=== PATIENT | female | born 1985 | race Caucasian/White ===

== ENCOUNTER 2017-11-27 14:53 | Emergency (ER) | payer MEDICAID, SELFPAY ==
[2017-11-27 14:54] VITALS: BP 108/44; PULSE 95; RESP 16; TEMP 36.1; O2SAT 98; BMI 41.6
--- NOTE | 2017-11-27 14:56 | EKG12_ITS ---
Test Reason : CP Blood Pressure : / mmHG Vent. Rate : 092 BPM Atrial Rate : 092 BPM P-R Int : 128 ms QRS Dur : 092 ms QT Int : 346 ms P-R-T Axes : 055 051 043 degrees QTc Int : 427 ms Normal sinus rhythm Normal ECG Confirmed by BLADIMIR GARCIA, MARCY ([id number]), writer editor JODI DICKSON ([id number]) on 12/01/2017 3:16:21 PM Referred By: EVE Confirmed By:MARCY GARRISON MD
--- NOTE | 2017-11-27 15:00 | RAD_ITS ---
STUDY: X-RAY CHEST REASON FOR EXAM: Female, 32 years old. Chest pain. TECHNIQUE: Single AP portable view of the chest. COMPARISON: None. FINDINGS: The lungs are clear and expanded. There is no demonstrated pleural abnormality. Normal size heart. Normal mediastinum and juan. Normal visualized pulmonary arteries. Normal visualized aortic arch and descending thoracic aorta. Normal visualized thoracic spine. Normal visualized ribs, clavicles, and shoulders. There is no demonstrated abnormality of the visualized soft tissue structures of the upper abdomen. RAD/Chest 1 View (Portable) IMPRESSION: Normal x-ray examination of the chest. Electronically Signed: Darwin Theodore MD at 15:15 EST Tel [phone], Service support ,
--- NOTE | 2017-11-27 15:01 | ED.VISSUMM ---
- ER Visit Summary Date of Service: 11/27/17 Chief Complaint: [] Sharp stabbing pain to the right of the sternum today History of Present Illness: The patient is a 32 F [] having intermittent sharp stabbing pain to the right of her sternum today she has had no fever no cough, she has no history of SD PE or DVT no risk factors no flu symptoms. She recently was diagnosed with UTI started on Keflex yesterday she took 1 dose she denies Physical Examination: [] Points with the tip of one finger to an area to the right of the sternum over a bony rib this area shows no signs of inflammation infection or lesion and there is no crepitance. Her lungs are clear heart tones are normal abdomen soft nontender the back is unremarkable upper lower extremities unremarkable no sinus clubbing or edema, Test Results: [] Emergency Department Course and Treatment: [] There is nothing on history physical exam suggest SD PE or DVT this is a very focal fingertip type pain EKG shows a sinus rhythm chest x-ray is unremarkable I explained test results to her she agrees with the workup she will be discharged home to use Motrin or Tylenol for the pain and follow with her family doctor return for change in symptoms Treatment Plan: [] Disposition: [] Impression: [] Intermittent sharp right-sided chest pain This note was generated with [employer] dictation software. It may contain incorrect words, spelling, and punctuation that were not noted in review of the chart prior to signing ED Disposition - Plan for ED Patient: Chief Complaint: Chest Pain Referrals: [facility] Doctor,Out of [Primary Care Provider] -
--- NOTE | 2017-11-27 15:04 | ED.DCSUM_ITS ---
- ER Visit Summary Date of Service: 11/27/17 Chief Complaint: [] Sharp stabbing pain to the right of the sternum today History of Present Illness: The patient is a 32 F [] having intermittent sharp stabbing pain to the right of her sternum today she has had no fever no cough, she has no history of [place] PE or DVT no risk factors no flu symptoms. She recently was diagnosed with UTI started on Keflex yesterday she took 1 dose she denies Physical Examination: [] Points with the tip of one finger to an area to the right of the sternum over a bony rib this area shows no signs of inflammation infection or lesion and there is no crepitance. Her lungs are clear heart tones are normal abdomen soft nontender the back is unremarkable upper lower extremities unremarkable no sinus clubbing or edema, Test Results: [] Emergency Department Course and Treatment: [] There is nothing on history physical exam suggest [place] PE or DVT this is a very focal fingertip type pain EKG shows a sinus rhythm chest x-ray is unremarkable I explained test results to her she agrees with the workup she will be discharged home to use Motrin or Tylenol for the pain and follow with her family doctor return for change in symptoms Treatment Plan: [] Disposition: [] Impression: [] Intermittent sharp right-sided chest pain This note was generated with [employer] dictation software. It may contain incorrect words, spelling, and punctuation that were not noted in review of the chart prior to signing ED Disposition - Plan for ED Patient: Chief Complaint: Chest Pain Referrals: [facility] Doctor,Out of [Primary Care Provider] -
--- NOTE | 2017-11-27 16:12 | DCINST.ED_ITS ---
ED Disposition - Plan for ED Patient: Chief Complaint: Chest Pain Instructions: ED Chest Pain Atypical Unkn Cause Prescriptions: Naproxen [Naprosyn] 500 mg PO BID PRN #20 tab Referrals: [facility] Doctor,Out of [Primary Care Provider] -
[2017-11-27 16:13] VITALS: PULSE 90; RESP 16
== END 2017-11-27 17:02 | disposition home or self-care (01) ==
PROVIDERS: Emergency Provider Emergency Medicine
DX: R07.89 Other chest pain (principal)
CPT/HCPCS: 71045; 93005; 99282

== ENCOUNTER 2019-04-22 10:23 | Outpatient (RCR) | payer OTHER, SELFPAY | END 2019-04-25 23:59 | disposition home or self-care (01) | LOC: NS 10:23 | PROVIDERS: Visit Provider Family Medicine | DX: E66.01 Morbid (severe) obesity due to excess calories (principal); Z71.3 Dietary counseling and surveillance | CPT/HCPCS: 97802 ==

== ENCOUNTER 2019-05-13 16:22 | Outpatient (RCR) | payer OTHER, SELFPAY | END 2019-05-26 23:59 | LOC: NS 16:22 | PROVIDERS: Visit Provider Family Medicine | DX: E66.01 Morbid (severe) obesity due to excess calories (principal); Z71.3 Dietary counseling and surveillance | CPT/HCPCS: 97803 ==

== ENCOUNTER 2019-06-01 16:36 | Outpatient (RCR) | payer OTHER, SELFPAY | END 2019-06-01 23:59 | disposition home or self-care (01) | LOC: NS 16:36 | PROVIDERS: Visit Provider Family Medicine | DX: E66.01 Morbid (severe) obesity due to excess calories (principal); Z71.3 Dietary counseling and surveillance | CPT/HCPCS: 97803 ==

== ENCOUNTER 2022-11-08 18:11 | Emergency (ER) | payer OTHER, MEDICAID, SELFPAY ==
[2022-11-08 18:12] VITALS: BP 135/93; PULSE 73; RESP 17; TEMP 35.6; O2SAT 96; BMI 41.8
--- NOTE | 2022-11-08 18:57 | ED.VIS.GI ---
HPI HPI - GI History of Present Illness Chief Complaint: Abd Pain Narrative Narrative: 37-year-old female presents with abdominal pain that she has had she states that she had gastric sleeve surgery at [facility] on October 22, 2022, almost 3 weeks ago. She drink caffeinated coffee today. She is concerned initially that she had dumping syndrome, but she did not have a bowel movement until she took a laxative today. She states she had nausea and vomiting and she took her Zofran, but she really has not had anything to eat or fluids today. She called her surgeon in [place], and they said for her to increase her Prilosec, and if she was not any better on Friday, that they would perform a swallowing study/evaluation. She states she had it prior to her surgery and does not like to drink the contrast. She presents here, mainly asking for IV fluids because she has not had anything today. [facility] Medical History no medical history Home Medications naproxen 500 mg tablet 500 mg PO BID PRN #20 tabs 11/27/17 [Rx Last Taken Unknown] Allergy/AdvReac Type Severity Reaction Status Date / Time erythromycin base Allergy Unknown Verified 11/08/22 18:12 milk AdvReac Nausea/Vom/ Verified 11/08/22 18:12 Diarrhea Family History no significant family his Surgical History no surgical history Social History Smoking Status: Never smoker alcohol intake: never substance use type: does not use ROS ROS ED ROS Narrative Constitutional: No fever, no chills. HEENT: No sore throat. No neck pain. No loss of vision. No rhinorrhea. Cardiovascular: No chest pain. No palpitations. No pedal edema. Respiratory: No cough, no shortness of breath. Abdominal: Mild epigastric abdominal pain. Positive nausea. Positive vomiting. Constipation-resolved Genitourinary: No dysuria. No hematuria. Musculoskeletal: No myalgias. No arthralgias. Neurologic: No headaches. No dizziness. No lightheadedness. Skin: No rash. No change in color. Psychiatric: No depression. No anxiety. EXAM Physical Exam Narrative Exam Narrative: Afebrile. Vital signs noted. HEENT: Normocephalic. Atraumatic. PERRL, EOMI. Neck soft and supple. No point tenderness or step off. Cardiovascular: Regular rate and rhythm. No murmurs, rubs, or gallops appreciated. Respiratory: No tachypnea. Lungs clear to auscultation bilaterally. Gastrointestinal: Abdomen soft, nontender, with normoactive bowel sounds. No rebound or guarding. Neurological: Awake. Alert. Nonfocal, nonlateralizing. Skin: No rash. Normal color. No pallor. Musculoskeletal: No pedal edema. Full range of motion extremities. Const Vital Signs: 11/08/22 18:12 Temperature 96.0 F L Temperature Source Temporal Pulse Rate 73 Respiratory Rate 17 Blood Pressure 135/93 H Blood Pressure Mean 107 Pulse Ox 96 Oxygen Delivery Method Room Air MDM MDM MDM Narrative Medical decision making narrative: Patient is not tachycardic. Clinically, she is not dehydrated. I will check her labs including CBC, CMP, and lipase. She was bolused IV fluids 1 L normal saline intravenously. I reviewed her laboratory work. She has normal white count of 6.0, hemoglobin normal at 12.7, hematocrit 38.7. Platelet count normal at 228. CMP is also grossly unremarkable and normal with normal sodium of 140, normal potassium of 3.6, normal chloride of 106. Lipase normal at 261. Glucose appropriately elevated at 87. Normal anion gap of 8. At this point in time, after her IV fluids, I feel she can be discharged safely home with follow-up. I considered ordering a CT of the abdomen and pelvis, but based on her physical examination, I do not feel that CT is indicated. Rather, I do feel that if she is still having problems on Friday that she should follow-up with her bariatric surgeon as already suggested by their office. Return instructions to the emergency department were reviewed. Disposition is discharged home in stable condition. Lab Data Attestation: I reviewed the patient's lab results. Labs: Laboratory Results - last 24 hr 11/08/22 11/08/22 19:05 19:05 WBC 6.0 RBC 4.43 Hgb 12.7 Hct 38.7 MCV 87.4 MCH 28.7 MCHC 32.8 RDW Std Deviation 42.2 RDW Coeff of Tony 13.7 Plt Count 228 MPV 11.2 Immature Gran % (Auto) 0.200 Neut % (Auto) 65.6 Lymph % (Auto) 26.0 [place] % (Auto) 6.5 Eos % (Auto) 1.2 Baso % (Auto) 0.5 Absolute Neuts (auto) 3.9 Absolute Lymphs (auto) 1.55 Nucleated RBC % 0 Sodium 140 Potassium 3.6 Chloride 106 Carbon Dioxide 26.0 Anion Gap 8 BUN 9 Creatinine 0.74 Estim Creat Clear Calc 91.63 Est GFR (MDRD) Af Amer 114 Est GFR (MDRD) Non-Af 95 BUN/Creatinine Ratio 12.1 Glucose 87 Calcium 8.9 Total Bilirubin 0.50 AST 22 ALT 44 Alkaline Phosphatase 44 L Total Protein 7.7 Albumin 3.9 Globulin 3.8 Albumin/Globulin Ratio 1.0 Lipase 261 Discharge Plan Triage Chief Complaint: Abd Pain ED Provider: Oscar Smith Dx/Rx/DC Orders Clinical Impression: Nausea and vomiting, Constipation, History of bariatric surgery Instructions: ED Constipation (Adult), ED Diet Vomiting Diarrhea Prescriptions: No Action naproxen 500 MG tablet 500 mg PO BID PRN Qty: 20 0RF Primary Care Provider: [facility] Doctor,Out of Referrals: [facility] Doctor,Out of [Primary Care Provider] - Disposition Disposition: Home, Self Care
[2022-11-08 19:17] LABS: Absolute Lymphocyte Count 1.55 X10^3/uL (0.83-4.51); Absolute Neutrophil Count 3.9 X10^3/uL (2.0-7.7); Basophil# 0.03 X10^3/uL; Basophil% 0.5 % (0-1); Eosinophil# 0.07 X10^3/uL; Eosinophils% 1.2 % (0-5); Hematocrit 38.7 % (37-47); Hemoglobin 12.7 g/dL (12.0-15.0); Lymphocyte # 1.55 X10^3/ul (0.83-4.51); Mean Corp Hgb Conc 32.8 g/dL (32-36); Mean Corpuscular Hgb 28.7 pg (27.0-32.0); Mean Corpuscular Volume 87.4 fL (81-99); Mean Platelet Vol. 11.2 fl (6.2-12.0); Monocyte# 0.39 X10^3/uL; Monocyte% 6.5 % (0-10); NRBC Flagged by Analyzer 0 % (0-5); Neutrophil # 3.92 X10^3/uL (2.7-7.7); Neutrophil % 65.6 % (47-70); Platelet Count 228 K/mm3 (150-450); RBC Distribution Width CV 13.7 % (11.6-14.6); RBC Distribution Width SD 42.2 fl (35.1-43.9); Red Blood Count 4.43 M/mm3 (4.2-5.4)
[2022-11-08] MEDS: 0.9% Normal Saline 1,000 ML 1000 ML IV (19:20)
[2022-11-08 19:41] LABS: AST(SGOT) 22 U/L (15-37); Alanine Aminotransfer ALT/SGPT 44 U/L (13-56); Albumin, Serum 3.9 g/dL (3.2-5.0); Alkaline Phosphatase 44 U/L (45-117); Anion Gap 8 (5-15); BUN 9 mg/dL (7-18); BUN/Creat Ratio 12.1 RATIO (10-20); Calcium,Total 8.9 mg/dL (8.5-10.1); Chloride 106 mmol/L (98-107); Creatinine, Serum 0.74 mg/dL (0.55-1.02); EST Glomerular Filtration Rate 95 mL/min (>60); Est Glom Filt Rate - Afr Amer 114 mL/min (>60); Estimated Creatinine Clearance 91.63 ml/min; Globulin 3.8 g/dL (2.2-4.2); Glucose 87 mg/dL (74-106); Lipase 261 U/L (73-393); Potassium 3.6 mmol/L (3.5-5.1); Protein, Total 7.7 g/dL (6.4-8.2); Sodium Level 140 mmol/L (136-145)
== END 2022-11-08 20:25 | disposition home or self-care (01) ==
PROVIDERS: Emergency Provider Emergency Medicine; Referring Provider Emergency Medicine; Visit Provider Emergency Medicine
DX: R11.2 Nausea with vomiting, unspecified (principal); K59.00 Constipation, unspecified; Z98.84 Bariatric surgery status
CPT/HCPCS: 80053; 83690; 85025; 96360; 99283; J7030

== ENCOUNTER 2022-11-21 09:40 | Emergency (ER) | payer OTHER, MEDICAID, SELFPAY ==
[2022-11-21 09:40] VITALS: BP 108/44; PULSE 90; RESP 18; TEMP 36.6; O2SAT 96; BMI 38.6
[2022-11-21 10:58] LABS: Absolute Lymphocyte Count 1.66 X10^3/uL (0.83-4.51); Basophil# 0.04 X10^3/uL; Basophil% 0.6 % (0-1); Eosinophil# 0.06 X10^3/uL; Eosinophils% 0.9 % (0-5); Hematocrit 44.1 % (37-47); Hemoglobin 14.7 g/dL (12.0-15.0); Lymphocyte # 1.66 X10^3/ul (0.83-4.51); Mean Corp Hgb Conc 33.3 g/dL (32-36); Mean Corpuscular Hgb 28.5 pg (27.0-32.0); Mean Corpuscular Volume 85.5 fL (81-99); Mean Platelet Vol. 11.4 fl (6.2-12.0); Monocyte% 9.4 % (0-10); NRBC Flagged by Analyzer 0 % (0-5); Neutrophil # 4.02 X10^3/uL (2.7-7.7); Neutrophil % 62.9 % (47-70); Platelet Count 222 K/mm3 (150-450); RBC Distribution Width SD 43.2 fl (35.1-43.9); Red Blood Count 5.16 M/mm3 (4.2-5.4); White Blood Count 6.4 K/mm3 (4.4-11.0)
[2022-11-21] MEDS: Dicyclomine 10 MG Capsule 20 MG PO (11:04)
[2022-11-21 11:10] LABS: Bacteria 0 SEEN /hpf (None Seen); Mucous, Urine 0 SEEN /hpf (<or=2+)
[2022-11-21 11:11] LABS: Color, Urine Amber (Yellow)
[2022-11-21 11:12] LABS: Leukocyte Esterase-Dipstick 100 /ul (Negative); Nitrite-Dipstick Negative (Negative)
[2022-11-21 11:13] LABS: Occult Blood-Urine Negative /ul (Negative); Protein-Dipstick 30 mg/dl (Negative); Urine Urobilinogen Normal (Normal)
[2022-11-21 11:14] LABS: Glucose, Dipstick Normal (Normal); Ketone-Dipstick 50 mg/dl (Negative); Urine Bilirubin Dipstick Negative (Negative)
[2022-11-21 11:15] LABS: AST(SGOT) 24 U/L (15-37); Alanine Aminotransfer ALT/SGPT 59 U/L (13-56); Alkaline Phosphatase 51 U/L (45-117); Bilirubin, Direct 0.28 mg/dL (0.00-0.30); Globulin 4.3 g/dL (2.2-4.2); Lipase 614 U/L (73-393); Protein, Total 8.3 g/dL (6.4-8.2)
[2022-11-21 11:18] LABS: Red Blood Cells-Urine 0-5 SEEN /hpf (0-5); Urine Clarity Sl Cloudy (Clear); White Blood Cells 25-50 SEEN /hpf (0-5)
[2022-11-21 11:19] LABS: Squamous Epithelial Cells - UA 0-5 SEEN /hpf (5-10)
--- NOTE | 2022-11-21 12:11 | CT_ITS ---
STUDY: CT ABDOMEN WITH CONTRAST REASON FOR EXAM: Female, 37 years old. Epigastric and left upper quadrant pain, elevated lipase. Recent gastric sleeve surgery. RADIATION DOSAGE (If Supplied By Facility): CTDIvol = ( 17.23 ) mGy, DLP = ( 780.76 ) mGycm TECHNIQUE: Transaxial images were obtained post I.V. administration of IV 100mL Isovue-300, and without oral contrast. Sagittal and coronal images were reconstructed. Individualized dose optimization techniques were used for this CT. COMPARISON: None. FINDINGS: The visualized lung bases are unremarkable. The visualized portions of the heart are within normal limits. There is decreased attenuation of the liver consistent with steatosis. Mild hepatomegaly. The gallbladder is contracted. Normal spleen. Normal pancreas. Normal bilateral adrenal glands. Normal right kidney. Normal left kidney. The patient is status post gastric sleeve surgery. Normal small intestine. Normal colon. The appendix is visualized and appears normal. Normal abdominal aorta. Normal inferior vena cava. Normal retroperitoneum. Normal abdominal wall. Normal osseous structures. CT/Abdomen WITH IV Contrast IMPRESSION: Mild hepatomegaly and fatty infiltration of the liver. Status post cholecystectomy and gastric sleeve surgery. Electronically Signed: Darwin Theodore MD at 13:17 EST ,
[2022-11-21] MEDS: Ondansetron 4 MG/2 ML Vial IV (12:25)
[2022-11-21] MEDS: Morphine 4 MG/ML Syringe IV (12:25)
[2022-11-21] MEDS: 0.9% Normal Saline 1,000 ML 999 ML IV (12:43)
--- NOTE | 2022-11-21 13:05 | ED.VIS.GI ---
HPI HPI - GI History of Present Illness Chief Complaint: Abd Pain Detail of Chief Complaint: Gastric left upper quadrant abdominal pain Informant: patient Abdominal Pain/Flank Pain Onset: Weeks (Since gastric sleeve surgery in September 2022) Context: Sudden Onset Timing: Continuous and Waxes and wanes Quality: - (Pain) Location: Epigastric and LUQ Current Severity: Mild Maximum Severity: Severe Worsened by: Nothing; Not Worsened By Car ride, Food or Movement Relieved by: Nothing Nausea/Vomiting/Emesis GI Symptom: Positive for Nausea and Vomiting Onset: Days Quality: Negative for Nonbilious, Blood streaks, Coffee ground or Hematemesis Severity: Moderate Diarrhea/Melena/Hematochezia GI Symptom: Negative for Diarrhea, Melena or Hematochezia Associated Symptoms Associated Symptoms: Negative for Dysuria, Frequency, Hematuria or Urgency Narrative Narrative: Patient is a 37-year-old woman who has had postoperative pain since her gastric sleeve surgery by Dr. Blanca. Patient's office visit for November [address] Simon examined her. Patient did have a Gastrografin upper GI series performed. This revealed sleeve gastrostomy with longitudinal resection of the stomach and remaining tubular gastric conduit. Compared to prior study there is now mucosal irregularities and probable tiny ulcer of the proximal gastric conduit representing interval change. There is no gastric extravasation. There is prompt gastric emptying from the gastric conduit into the duodenum without obstruction. Per Dr. Simon's impression for visit there is a large spontaneous gastric esophageal reflux with the mucosal changes noted on the Gastrografin upper GI series. There is no evidence obstruction or extravasation. Patient states has been seen several times at [facility]. She has been seen on the and however there documentation not available for review and labs were not available for review. Patient states she cannot longer take this pain She states she feels like she is dying. She reports nausea and vomiting daily. She denies history of alcohol use. Does not use any anti-inflammatories. She denies hematemesis. She denies black or maroon-colored stool. Prior similar symptoms: Yes Recent Illness/Hospitalization: Yes PFSH PFSH Medical History no medical history no medical history (Past history is markable for morbid obesity, postoperative pain with nausea and vomiting, gastritis without bleeding and depression.) Home Medications naproxen 500 mg tablet 500 mg PO BID PRN #20 tabs 11/27/17 [Rx Last Taken Unknown] Allergy/AdvReac Type Severity Reaction Status Date / Time erythromycin base Allergy Unknown Verified 11/21/22 09:43 milk AdvReac Nausea/Vom/ Verified 11/21/22 09:43 Diarrhea Family History no significant family his Surgical History H/O gastric sleeve Social History (Updated 11/21/22 @ 13:[address] Slick Alexandre MD) household members: none Smoking Status: Never smoker alcohol intake: never substance use type: does not use ROS ROS ED Constitutional Constitutional ED: Denies chills, fever(s), subjective, sweats or weight loss ENT ENT ED: Denies ear pain, rhinorrhea or sore throat Cardiovascular Cardiovascular: Denies chest pain, palpitations or racing heartbeat Respiratory/Chest Respiratory/Chest: Denies cough, dyspnea or dyspnea on exertion Gastrointestinal Gastrointestinal: Reports abdominal pain, nausea and vomiting; Denies constipation, diarrhea or melena Genitourinary Genitourinary ED: Denies dysuria, hematuria or urinary frequency Musculoskeletal Musculoskeletal: Denies arthralgias, back pain, myalgias or neck pain Neurologic Neurologic: Denies headache(s), paresthesias or weakness Psychiatric Psychiatric: Reports anxiety and depression; Denies suicidal thoughts Hematologic/Lymphatic Hematologic/Lymphatic: Denies easy bleeding or easy bruising EXAM Physical Exam Const Vital Signs: 11/21/22 09:40 11/21/22 13:26 Temperature 97.9 F Temperature Source Temporal Pulse Rate 90 68 Respiratory Rate 18 16 Blood Pressure 108/44 L 133/80 H Blood Pressure Mean 65 97 Pulse Ox 96 95 Oxygen Delivery Method Room Air Room Air Positive well nourished, well developed and obese Constitutional Narrative: Patient is tearful. Patient has labile emotions with flat affect. General Appearance ED: well developed; Negative for NAD or pallor Nutritional Appearance: obese HEENT Reports TM's clear and moist mucous membranes HEENT Narrative: Head is atraumatic normocephalic. Ears normal. Nares patent. Posterior pharynx out erythema or exudate. Tympanic Membrane ED: Yes TM's clear Eyes PERRL and EOMs intact bilaterally General Eye ED: Negative for pale conjunctiva or scleral icterus Neck no lymphadenopathy, supple and no JVD Resp normal respiratory effort and clear to auscultation bilaterally Cardio regular rate, regular rhythm, S1 normal heart sound, S2 normal heart sound and no murmurs GI non-distended and no masses; Negative for non-tender Auscultation: hypoactive bowel sounds Palpation: soft and tender epigastric and LUQ; Negative for hepatomegaly, splenomegaly, hernia, mass, pulsatile mass or rebound tenderness present Back/Spine no CVA tenderness Back/Spine Narrative: Back appears normal. There is no tenderness. Extremity full ROM General Extremety ED: Negative for edema or tenderness General Extremity: Negative for edema Neuro CN's II-XII intact bilaterally and moves all extremities Sensorium / Orientation: alert Psych thought process normal Mood & Affect: depressed, anxious and tearful Skin no wounds General Skin Exam: Negative for jaundice or pallor Lesions: no lesions Rashes: no rashes MDM MDM MDM Narrative Medical decision making narrative: Patient with postoperative. Unable to access records from [facility]. Office note by Dr. Simon done November 16 was reviewed. Findings were remarkable for ulceration in the proximal gastric conduit and gastroesophageal reflux. Work-up is remarkable for an elevated lipase of 1-1/2-2 times normal. This may indicate pancreatitis. For this reason CT of the abdomen was obtained. White count and differential are normal. UA reveals pyuria without bacteriuria. Macro was positive for leukoesterase 100 and negative for blood and nitrites. There is also ketones consistent with her not being able to eat or drink anything. There is no evidence of pancreatitis on CAT scan. CT results were reviewed. Patient was informed based on the upper GI series she has an ulcer. Lab Data Attestation: I reviewed the patient's lab results. Lab results narrative: Documented the MDM portion of the chart Labs: Laboratory Results - last 24 hr 11/21/22 11/21/22 11/21/22 10:50 10:50 11:00 WBC 6.4 RBC 5.16 Hgb 14.7 Hct 44.1 MCV 85.5 MCH 28.5 MCHC 33.3 RDW Std Deviation 43.2 RDW Coeff of Tony 14.0 Plt Count 222 MPV 11.4 Immature Gran % (Auto) 0.200 Neut % (Auto) 62.9 Lymph % (Auto) 26.0 [place] % (Auto) 9.4 Eos % (Auto) 0.9 Baso % (Auto) 0.6 Absolute Neuts (auto) 4.0 Absolute Lymphs (auto) 1.66 Nucleated RBC % 0 Total Bilirubin 0.80 Direct Bilirubin 0.28 AST 24 ALT 59 H Alkaline Phosphatase 51 Total Protein 8.3 H Albumin 4.0 Globulin 4.3 H Lipase 614 H Urine Color [place] Urine Clarity Sl Cloudy Urine pH 5.0 Ur Specific [place] 1.020 Urine Protein 30 H Urine Glucose (UA) Normal Urine Ketones 50 Urine Occult Blood Negative Urine Nitrite Negative Urine Bilirubin Negative Urine Urobilinogen Normal Ur Leukocyte Esterase 100 H Urine RBC 0-5 SEEN Urine WBC 25-50 SEEN Ur Squamous Epith Cells 0-5 SEEN Urine Bacteria 0 SEEN Urine Mucus 0 SEEN Radiography Diagnostic Testing: Clinical Impression(s) from Imaging Studies Abdomen CT 11/21/22 12:11 IMPRESSION: Mild hepatomegaly and fatty infiltration of the liver. Status post cholecystectomy and gastric sleeve surgery. Electronically Signed: Darwin Theodore MD at 13:17 EST , Discharge Plan Triage Chief Complaint: Abd Pain ED Provider: BaldomeroSlick Dx/Rx/DC Orders Clinical Impression: Gastric ulcer, S/P gastric sleeve procedure, Serum lipase elevation, Fatty liver Instructions: Nonalcoholic Fatty Liver ..., ED Gastritis Ulcer No Abx Prescriptions: No Action naproxen 500 MG tablet 500 mg PO BID PRN Qty: 20 0RF Primary Care Provider: Care Physician,No Primary Referrals: Care Physician,No Primary [Primary Care Provider] - Doctor,Your [Non-Staff] - 1 Week if not improving Activity Restrictions/Additional Instructions: 1. Take the Carafate you were prescribed 1/2-hour before meals and 1 hour before bedtime (4 times a day) 2. If you develop black or maroon-colored stool return to an emergency room for evaluation Disposition Disposition: Home, Self Care
[2022-11-21 13:26] VITALS: BP 133/80; PULSE 68; RESP 16; O2SAT 95
== END 2022-11-21 13:52 | disposition home or self-care (01) ==
PROVIDERS: Emergency Provider Emergency Medicine; Visit Provider Emergency Medicine
DX: K25.9 Gastric ulcer, unspecified as acute or chronic, without hemorrhage or perforation (principal); K76.0 Fatty (change of) liver, not elsewhere classified; R74.8 Abnormal levels of other serum enzymes; E66.9 Obesity, unspecified; Z68.38 Body mass index [BMI] 38.0-38.9, adult; Z98.84 Bariatric surgery status
CPT/HCPCS: 74160; 80076; 81001; 83690; 85025; 96361; 96374; 96375; 99283; J7030; Q9967; A4216; J2405

== ENCOUNTER 2022-11-23 19:34 | Emergency (ER) | payer OTHER, MEDICAID, SELFPAY ==
[2022-11-23 19:35] VITALS: BP 132/84; PULSE 91; RESP 16; TEMP 36.1; BMI 38.9
--- NOTE | 2022-11-23 19:41 | EDS_ITS ---
HPI History of Present Illness Chief Complaint: Abd Pain Narrative Narrative: 37-year-old female here with abdominal pain patient notes she is status post gastric sleeve surgery in 10/22/2022. Notes nausea possible dehydration. Notes approximate 6 episodes of nonbloody nonbilious vomitus over the last 24 hours. States got epigastric and diffuse abdominal pain. States has been feeling this way for the last several weeks has been seen in the emergency department several times. States she did take antibiotics which was diagnosed UTI but cannot keep her antibiotics down secondary to nausea and vomiting. PFSH PFSH Home Medications naproxen 500 mg tablet 500 mg PO BID PRN #20 tabs 11/27/17 [Rx Last Taken Unknown] Allergy/AdvReac Type Severity Reaction Status Date / Time erythromycin base Allergy Unknown Verified 11/21/22 09:43 milk AdvReac Nausea/Vom/ Verified 11/21/22 09:43 Diarrhea Family History no significant family his Surgical History H/O gastric sleeve Social History (Updated 11/21/22 @ 13:[address] Slick Alexandre MD) household members: none Smoking Status: Never smoker alcohol intake: never substance use type: does not use ROS ROS ED ROS Narrative Constitutional: Denies fever HEENT: Denies sore throat Neck: Denies neck pain Cardiovascular: Denies chest pain, syncope Respiratory: Denies shortness of breath GI: Endorses abdominal pain, nausea and vomiting : Denies changes in urinary habits Musculoskeletal: Denies muscle or joint pain Neurologic: Denies numbness weakness or loss of sensation Skin denies rash EXAM Physical Exam Narrative Exam Narrative: Nursing triage notes reviewed, Vital signs reviewed Constitutional: please see mdm HENT: MMM Eyes: Pupils equal round and reactive to light, Extraocular muscles intact Neck: No stridor, no JVD, full neck ROM Lungs: Clear to auscultation, No wheezing or rales. No increased work of breathing, no conversational dyspnea, no accessory muscle use, no nasal flaring. No respiratory distress noted Heart: Regular rate and rhythm, No murmurs, No rubs and No gallops, 2+ distal pulses (radial, femoral, posterior tibial) in all extremities Abdomen: Soft, diffuse nonspecific tenderness but no rigidity, rebound or guarding, no obvious peritoneal signs, no palpable pulsatile abdominal masses, no auscultated abdominal bruit : No CVAT Extremities: No edema Neuro: No focal neurological deficits, cranial nerves II through XII intact, 5/5 strength in all extremities. Intact sensation to light touch in all extremities, 2+ reflexes bilateral patella dens. Normal gait. No ataxia. Skin: No rash or lesions noted Const Vital Signs: 11/23/22 19:35 11/23/22 19:35 11/23/22 22:55 Temperature 97.0 F L 97.0 F L Temperature Source Temporal Temporal Pulse Rate 91 91 84 Respiratory Rate 16 16 16 Blood Pressure 132/84 H 132/84 H 115/78 Blood Pressure Mean 100 100 90 Pulse Ox 96 Oxygen Delivery Method Room Air MDM MDM MDM Narrative Medical decision making narrative: Chief Complaint: External records reviewed: Noted to be status post gastric sleeve surgery on 10/22/2022 Seen on 11/08/2022 as well as 11/21/2022. During the most recent visit patient noted she was also seen on the and 13 November. Labs from 2 days ago showed no leukocytosis, anemia or thrombocytopenia, did note elevated lipase at 614, no significant obstructive etiology noted on LFTs, no evidence of UTI. CT scan that time showed mild hepatomegaly, fatty liver infiltration, showed no evidence of active extravasation from gastric sleeve I considered: Gastric sleeve leak, bariatric surgery complication, intra-abdominal infection, perforation, obstruction, pancreatitis, hepatobiliary pathology, dehydration, acute kidney injury, electrolyte abnormalities, I obtained a broad lab work-up. I considered obtaining a CT scan of the patient abdomen pelvis however thought is unnecessary given she is having ongoing sympt oms with a recent negative CT scan 2 days ago. I gave the patient IV fluids, nausea and pain medicine. Factors affecting care: Status post gastric sleeve on 10/22/2022 Social determinants of health: Poor health literacy Shared decision making: I will have a discussion with the patient and or visitors regarding risk/benefits of further testing or admission. They will be made aware of of the risk/benefits inherent in this decision they will be given the opportunity to voice understanding. Consults: Lab Data Attestation: I reviewed the patient's lab results. Lab results narrative: CBC without evidence of systemic inflammation, anemia or thrombocytopenia BMP with mild hypokalemia, no significant anion gap to suggest endorgan hypoperfusion, no sniffing acute kidney injury Lipase marginally elevated but downtrending from prior LFTs with mild elevations in AST and ALT but no significant obstructive biliary pathology noted Labs: Laboratory Results - last 24 hr 11/23/22 11/23/22 11/23/22 20:20 20:20 21:30 WBC 6.3 RBC 5.14 Hgb 15.0 Hct 44.3 MCV 86.2 MCH 29.2 MCHC 33.9 RDW Std Deviation 43.3 RDW Coeff of Tony 13.7 Plt Count 238 MPV 11.4 Immature Gran % (Auto) 0.200 Neut % (Auto) 68.2 Lymph % (Auto) 23.4 [place] % (Auto) 7.4 Eos % (Auto) 0.5 Baso % (Auto) 0.3 Absolute Neuts (auto) 4.3 Absolute Lymphs (auto) 1.48 Nucleated RBC % 0 Sodium 139 Potassium 3.1 L Chloride 100 Carbon Dioxide 32.0 Anion Gap 7 BUN 9 Creatinine 0.87 Estim Creat Clear Calc 77.94 Est GFR (MDRD) Af Amer 96 Est GFR (MDRD) Non-Af 79 BUN/Creatinine Ratio 10.4 Glucose 117 H Calcium 9.9 Total Bilirubin 0.70 Direct Bilirubin 0.23 AST 74 H ALT 107 H Alkaline Phosphatase 52 Total Protein 8.4 H Albumin 4.3 Globulin 4.1 Lipase 405 H Urine Test Negative Discharge Plan Triage Chief Complaint: Abd Pain ED Provider: Tono Barr Dx/Rx/DC Orders Clinical Impression: S/P gastric sleeve procedure, Nausea & vomiting, Acute hypokalemia Prescriptions: No Action naproxen 500 MG tablet 500 mg PO BID PRN Qty: 20 0RF Primary Care Provider: Mary Michel Referrals: Care Physician,No Primary [Non-Staff] -
[2022-11-23 20:42] LABS: Absolute Lymphocyte Count 1.48 X10^3/uL (0.83-4.51); Absolute Neutrophil Count 4.3 X10^3/uL (2.0-7.7); Basophil# 0.02 X10^3/uL; Basophil% 0.3 % (0-1); Eosinophil# 0.03 X10^3/uL; Eosinophils% 0.5 % (0-5); Hematocrit 44.3 % (37-47); Lymphocyte # 1.48 X10^3/ul (0.83-4.51); Lymphocyte % 23.4 % (19-41); Mean Corp Hgb Conc 33.9 g/dL (32-36); Mean Corpuscular Hgb 29.2 pg (27.0-32.0); Mean Corpuscular Volume 86.2 fL (81-99); Mean Platelet Vol. 11.4 fl (6.2-12.0); Monocyte# 0.47 X10^3/uL; Monocyte% 7.4 % (0-10); NRBC Flagged by Analyzer 0 % (0-5); Neutrophil # 4.31 X10^3/uL (2.7-7.7); Neutrophil % 68.2 % (47-70); Platelet Count 238 K/mm3 (150-450); RBC Distribution Width CV 13.7 % (11.6-14.6); RBC Distribution Width SD 43.3 fl (35.1-43.9); Red Blood Count 5.14 M/mm3 (4.2-5.4); White Blood Count 6.3 K/mm3 (4.4-11.0)
[2022-11-23] MEDS: 0.9% Normal Saline 1,000 ML 1000 ML IV (20:46)
[2022-11-23] MEDS: proMETHazine 25 MG/ML Syringe 12.5 MG IM (20:46)
[2022-11-23] MEDS: Morphine 4 MG/ML Syringe IV (20:46)
[2022-11-23 20:54] LABS: AST(SGOT) 74 U/L (15-37); Alanine Aminotransfer ALT/SGPT 107 U/L (13-56); Albumin, Serum 4.3 g/dL (3.2-5.0); Alkaline Phosphatase 52 U/L (45-117); Anion Gap 7 (5-15); BUN 9 mg/dL (7-18); BUN/Creat Ratio 10.4 RATIO (10-20); Bilirubin, Direct 0.23 mg/dL (0.00-0.30); Calcium,Total 9.9 mg/dL (8.5-10.1); Chloride 100 mmol/L (98-107); Creatinine, Serum 0.87 mg/dL (0.55-1.02); EST Glomerular Filtration Rate 79 mL/min (>60); Est Glom Filt Rate - Afr Amer 96 mL/min (>60); Estimated Creatinine Clearance 77.94 ml/min; Globulin 4.1 g/dL (2.2-4.2); Glucose 117 mg/dL (74-106); Lipase 405 U/L (73-393); Potassium 3.1 mmol/L (3.5-5.1); Protein, Total 8.4 g/dL (6.4-8.2); Sodium Level 139 mmol/L (136-145)
[2022-11-23 22:07] LABS: Internal QC Validated? YES +Cl - CLEAR BKGD; Pregnancy, Urine Negative Negative
[2022-11-23] MEDS: Potassium Chloride Oral Tablet 20 MEQ 40 MEQ PO (22:16)
[2022-11-23] MEDS: Morphine 4 MG/ML Syringe IM (22:16)
[2022-11-23 22:55] VITALS: BP 115/78; PULSE 84; RESP 16; O2SAT 96
== END 2022-11-23 23:18 | disposition home or self-care (01) ==
PROVIDERS: Emergency Provider Emergency Medicine; PCP Family Medicine; Visit Provider Emergency Medicine
DX: R11.2 Nausea with vomiting, unspecified (principal); Z90.3 Acquired absence of stomach [part of]; E87.6 Hypokalemia; K76.0 Fatty (change of) liver, not elsewhere classified
CPT/HCPCS: 80048; 80076; 81025; 83690; 85025; 96361; 96372; 96374; 99283; J7030; A4216

== ENCOUNTER 2022-11-24 21:46 | Emergency (ER) | payer OTHER, MEDICAID, SELFPAY ==
[2022-11-24 21:47] VITALS: BP 118/87; PULSE 94; RESP 15; TEMP 36.2; O2SAT 98; BMI 38.6
--- NOTE | 2022-11-24 22:14 | EX.ED.DYSGE1 ---
HPI History of Present Illness Chief Complaint: Abd Pain Informant: patient Narrative Narrative: Patient Eliza presents with abdominal pain. She had gastric sleeve done at [facility] on 22 October 2022. She states she has had pain ever since surgery. She had 3 weeks where she ate nothing at all. She verifies that she did not even eat a drop of food until today. She lost 51 pounds in the last 4 weeks since surgery. She states the most fluid she has ever gotten in the day is a 1 L container of Gatorade. Most days she has not gotten that much in. She has been having pain mostly in the right upper quadrant and slightly epigastric area and occasionally right lower quadrant ever since surgery. She states this morning she felt better. She then ate some mashed potatoes and gravy. She did well with this. However, when she went out shopping she got the pain that came back and then had an episode of diarrhea. She states she has a lifelong history of diarrhea but was somewhat constipated after surgery. That has resolved. She has not seen blood or mucus. She is not vomiting although she does have some intermittent nausea. She denies any fevers. Nothing specifically makes this pain better or worse. She states she has had about 6 visits to the emergency department. 4 are here. To her up at [facility]. She has seen the surgeon office and follow-up as well as they have seen her in the ER at [facility]. She has follow-up with her surgeon on the . She was told there is no ulcer or gastritis. However, in an office follow-up and upper GI that was done it now shows mucosal irregularities and suspect tiny ulcer in the region of the proximal gastric conduit there was no sign of obstruction. PFSH PFSH Home Medications naproxen 500 mg tablet 500 mg PO BID PRN #20 tabs 11/27/17 [Rx Last Taken Unknown] Allergy/AdvReac Type Severity Reaction Status Date / Time erythromycin base Allergy Unknown Verified 11/24/22 21:51 milk AdvReac Nausea/Vom/ Verified 11/24/22 21:51 Diarrhea Surgical History H/O gastric sleeve Social History household members: none Smoking Status: Never smoker alcohol intake: never substance use type: does not use ROS ROS ED Constitutional Constitutional ED: Denies chills, fever(s) or subjective ENT ENT ED: Denies rhinorrhea or sore throat Cardiovascular Cardiovascular: Denies chest pain or palpitations Respiratory/Chest Respiratory/Chest: Denies cough or dyspnea Gastrointestinal Gastrointestinal: Reports abdominal pain, diarrhea and nausea; Denies constipation, melena or vomiting Genitourinary Genitourinary ED: Denies dysuria, hematuria or urinary frequency Musculoskeletal Musculoskeletal: Denies arthralgias or back pain Integumentary Denies rash Neurologic Neurologic: Denies headache(s) Psychiatric Psychiatric: Denies anxiety Endocrine Endocrinology: Denies polydipsia or polyuria Hematologic/Lymphatic Hematologic/Lymphatic: Denies anemia Allergic/Immunologic Allergic/Immunologic ED: Denies urticaria EXAM Physical Exam Const Vital Signs: 11/24/22 21:47 11/25/22 00:39 Temperature 97.2 F L Temperature Source Temporal Pulse Rate 94 68 Respiratory Rate 15 15 Blood Pressure 118/87 H 146/95 H Blood Pressure Mean 97 112 Pulse Ox 98 98 Oxygen Delivery Method Room Air Room Air Positive well nourished and well developed General Appearance ED: well developed and NAD; Negative for cyanotic or diaphoretic HEENT Reports moist mucous membranes Negative for trauma Eyes General Eye ED: Negative for scleral icterus Neck no lymphadenopathy Chest Wall inspection of chest normal Resp normal respiratory effort and clear to auscultation bilaterally Effort and Inspection: Negative for pain with movement Auscultation: Negative for wheezes Cardio regular rate, regular rhythm and no murmurs Rate: Negative for bradycardia or tachycardic GI normal to inspection, nondistended, normoactive bowel sounds GI Narrative: All port sites are healed well. She has pain in the epigastric and right upper quadrant area. However there is not notable tenderness. There is no distention. Bowel sounds are slightly increased. Narrative: No CVA tenderness Back/Spine no CVA tenderness Extremity normal to inspection Neuro Sensorium / Orientation: alert Psych Psych Narrative: Mildly tearful and frustrated Skin no rashes or lesions noted MDM MDM MDM Narrative Medical decision making narrative: Patient CBC shows normal white count hemoglobin and platelets. Electrolytes overall unremarkable. No sign of significant dehydration. Lactic acid is normal. LFT show minimal elevation in the ALT AST. She has had these up before. Alk phos is actually low. is negative. Urine is slightly cloudy but it is also not a clean-catch with 25-50 epithelial cells. No bacteria. I do not think this represents an acute UTI. I did review CT images and reading from the . Patient is treated with IV fluids, 2 doses of morphine, Zofran, promethazine, pantoprazole. She is still nauseated and does not feel like she can go home or eat or drink. I did call [facility] regional transfer line. I then discussed the case directly with Dr. Patel who was on-call further gastric surgery group. We discussed the results of her presentation and exam work-up and prior imaging. They were to see her in the emergency department. I do not think repeating the CAT scan is required on this patient. She has had 2 MRIs upper GI and a CAT scan with the same symptoms over the last [address] was here a few days ago. With her exam being overall nonfocal/unremarkable and her blood work not showing any major abnormality I do not think acute imaging is necessary. I think the best route is symptom control and evaluation by her surgeon. Lab Data Attestation: I reviewed the patient's lab results. Labs: Laboratory Results - last 24 hr 11/24/22 11/24/22 11/24/22 22:44 22:44 22:44 WBC 6.3 RBC 4.67 Hgb 13.7 Hct 40.5 MCV 86.7 MCH 29.3 MCHC 33.8 RDW Std Deviation 44.3 H RDW Coeff of Tony 13.9 Plt Count 209 MPV 12.1 H Immature Gran % (Auto) 0.200 Neut % (Auto) 65.4 Lymph % (Auto) 26.5 [place] % (Auto) 6.0 Eos % (Auto) 1.4 Baso % (Auto) 0.5 Absolute Neuts (auto) 4.1 Absolute Lymphs (auto) 1.67 Nucleated RBC % 0 Sodium 139 Potassium 3.5 Chloride 102 Carbon Dioxide 26.0 Anion Gap 11 BUN 10 Creatinine 0.68 Estim Creat Clear Calc 99.71 Est GFR (MDRD) Af Amer 126 Est GFR (MDRD) Non-Af 104 BUN/Creatinine Ratio 14.7 Glucose 105 Lactic Acid 1.3 Calcium 9.1 Total Bilirubin 0.60 AST 72 H ALT 110 H Alkaline Phosphatase 43 L Total Protein 7.4 Albumin 3.6 Globulin 3.8 Albumin/Globulin Ratio 0.9 Serum , Qual Urine Color Urine Clarity Urine pH Ur Specific [place] Urine Protein Urine Glucose (UA) Urine Ketones Urine Occult Blood Urine Nitrite Urine Bilirubin Urine Urobilinogen Ur Leukocyte Esterase Urine RBC Urine WBC Ur Squamous Epith Cells Urine Bacteria Urine Mucus 11/24/22 11/24/22 22:44 22:55 WBC RBC Hgb Hct MCV MCH MCHC RDW Std Deviation RDW Coeff of Tony Plt Count MPV Immature Gran % (Auto) Neut % (Auto) Lymph % (Auto) [place] % (Auto) Eos % (Auto) Baso % (Auto) Absolute Neuts (auto) Absolute Lymphs (auto) Nucleated RBC % Sodium Potassium Chloride Carbon Dioxide Anion Gap BUN Creatinine Estim Creat Clear Calc Est GFR (MDRD) Af Amer Est GFR (MDRD) Non-Af BUN/Creatinine Ratio Glucose Lactic Acid Calcium Total Bilirubin AST ALT Alkaline Phosphatase Total Protein Albumin Globulin Albumin/Globulin Ratio Serum , Qual NEGATIVE Urine Color Yellow Urine Clarity Sl. Cloudy Urine pH 7.0 Ur Specific [place] 1.015 Urine Protein 30 H Urine Glucose (UA) Normal Urine Ketones 15 H Urine Occult Blood 10 H Urine Nitrite Negative Urine Bilirubin Negative Urine Urobilinogen 1 H Ur Leukocyte Esterase 500 H Urine RBC 0 SEEN Urine WBC 10-25 SEEN Ur Squamous Epith Cells 25-50 SEEN Urine Bacteria 0 SEEN Urine Mucus 2+ Discharge Plan Triage Chief Complaint: Abd Pain ED Provider: Reed Henriquez Dx/Rx/DC Orders Clinical Impression: Nausea & vomiting, Postoperative abdominal pain Prescriptions: No Action naproxen 500 MG tablet 500 mg PO BID PRN Qty: 20 0RF Primary Care Provider: Mary Michel Referrals: Mary Michel [Primary Care Provider] - Disposition Disposition: Acute Care Hospital Discharge Location: [facility]
[2022-11-24] MEDS: Morphine 4 MG/ML Syringe IV (22:51)
[2022-11-24] MEDS: 0.9% Normal Saline 1,000 ML 1000 ML IV (22:51)
[2022-11-24] MEDS: Ondansetron 4 MG/2 ML Vial IV (22:51)
[2022-11-24 22:57] LABS: Bacteria 0 SEEN /hpf (None Seen); Red Blood Cells-Urine 0 SEEN /hpf (0-5)
[2022-11-24 22:58] LABS: Absolute Lymphocyte Count 1.67 X10^3/uL (0.83-4.51); Absolute Neutrophil Count 4.1 X10^3/uL (2.0-7.7); Basophil# 0.03 X10^3/uL; Basophil% 0.5 % (0-1); Eosinophil# 0.09 X10^3/uL; Eosinophils% 1.4 % (0-5); Hematocrit 40.5 % (37-47); Hemoglobin 13.7 g/dL (12.0-15.0); Lymphocyte # 1.67 X10^3/ul (0.83-4.51); Lymphocyte % 26.5 % (19-41); Mean Corp Hgb Conc 33.8 g/dL (32-36); Mean Corpuscular Hgb 29.3 pg (27.0-32.0); Mean Corpuscular Volume 86.7 fL (81-99); Mean Platelet Vol. 12.1 fl (6.2-12.0); Monocyte# 0.38 X10^3/uL; NRBC Flagged by Analyzer 0 % (0-5); Neutrophil # 4.13 X10^3/uL (2.7-7.7); Neutrophil % 65.4 % (47-70); Platelet Count 209 K/mm3 (150-450); RBC Distribution Width CV 13.9 % (11.6-14.6); RBC Distribution Width SD 44.3 fl (35.1-43.9); Red Blood Count 4.67 M/mm3 (4.2-5.4); White Blood Count 6.3 K/mm3 (4.4-11.0)
[2022-11-24 22:59] LABS: Color, Urine Yellow (Yellow); Glucose, Dipstick Normal (Normal); Ketone-Dipstick 15 mg/dl (Negative); Leukocyte Esterase-Dipstick 500 /ul (Negative); Nitrite-Dipstick Negative (Negative); Occult Blood-Urine 10 /ul (Negative); Protein-Dipstick 30 mg/dl (Negative); Specific Gravity, Urine 1.015 (1.002-1.030); Urine Bilirubin Dipstick Negative (Negative); Urine Clarity Sl. Cloudy (Clear); Urine Urobilinogen 1 mg/dl (Normal)
[2022-11-24 23:05] LABS: Mucous, Urine 2+ /hpf (<or=2+); Squamous Epithelial Cells - UA 25-50 SEEN /hpf (5-10); White Blood Cells 10-25 SEEN /hpf (0-5)
[2022-11-24 23:06] LABS: Internal QC Validated? YES +Cl - CLEAR BKGD; Pregnancy, Serum, hCG Quali. NEGATIVE Negative
[2022-11-24 23:17] LABS: ALB/GLOB Ratio 0.9 RATIO (0.9-2.4); AST(SGOT) 72 U/L (15-37); Alanine Aminotransfer ALT/SGPT 110 U/L (13-56); Albumin, Serum 3.6 g/dL (3.2-5.0); Alkaline Phosphatase 43 U/L (45-117); Anion Gap 11 (5-15); BUN 10 mg/dL (7-18); BUN/Creat Ratio 14.7 RATIO (10-20); Calcium,Total 9.1 mg/dL (8.5-10.1); Chloride 102 mmol/L (98-107); Creatinine, Serum 0.68 mg/dL (0.55-1.02); EST Glomerular Filtration Rate 104 mL/min (>60); Est Glom Filt Rate - Afr Amer 126 mL/min (>60); Estimated Creatinine Clearance 99.71 ml/min; Globulin 3.8 g/dL (2.2-4.2); Glucose 105 mg/dL (74-106); Lactic Acid 1.3 mmol/L (0.4-1.9); Potassium 3.5 mmol/L (3.5-5.1); Protein, Total 7.4 g/dL (6.4-8.2); Sodium Level 139 mmol/L (136-145)
[2022-11-25] MEDS: proMETHazine 25 MG/ML Syringe 12.5 MG IM (00:31)
[2022-11-25] MEDS: Morphine 4 MG/ML Syringe IV (00:32)
[2022-11-25 00:39] VITALS: BP 146/95; PULSE 68; RESP 15; O2SAT 98
[2022-11-25 04:01] VITALS: BP 144/80; PULSE 70; RESP 15; O2SAT 99
== END 2022-11-25 04:03 | disposition short-term general hospital (02) ==
PROVIDERS: Emergency Provider Emergency Medicine; PCP Family Medicine; Visit Provider Emergency Medicine
DX: R11.2 Nausea with vomiting, unspecified (principal); R10.9 Unspecified abdominal pain; Z98.84 Bariatric surgery status; G89.18 Other acute postprocedural pain
CPT/HCPCS: 80053; 81001; 83605; 84703; 85025; 96361; 96365; 96372; 96375; 96376; 99284; J7030; A4216; J2405; J3490

== ENCOUNTER 2022-11-27 21:26 | Emergency (ER) | payer OTHER, MEDICAID, SELFPAY ==
[2022-11-27 21:27] VITALS: BP 114/79; PULSE 84; RESP 18; TEMP 35.9; O2SAT 100; BMI 38.6
--- NOTE | 2022-11-27 22:59 | EDS_ITS ---
HPI HPI - GI History of Present Illness Chief Complaint: Abd Pain Narrative Narrative: 37-year-old female presenting with nausea/vomiting. She states that she she drank some apple juice earlier today and after that developed some nausea and diarrhea. She has not had a fever. She is status post Oestreich sleeve about a month ago. She has been in the ER several times with similar symptoms. She has been to her surgeon in follow-up and was started on lidocaine patches and scopolamine patch. She also has Zofran, Phenergan, Carafate for home. PFSH PFSH Home Medications naproxen 500 mg tablet 500 mg PO BID PRN #20 tabs 11/27/17 [Rx Last Taken Unknown] Allergy/AdvReac Type Severity Reaction Status Date / Time erythromycin base Allergy Unknown Verified 11/27/22 21:27 milk AdvReac Nausea/Vom/ Verified 11/27/22 21:27 Diarrhea Surgical History H/O gastric sleeve Social History household members: none Smoking Status: Never smoker alcohol intake: never substance use type: does not use ROS ROS ED Constitutional Constitutional ED: Denies chills or fever(s) ENT ENT ED: Denies rhinorrhea or sore throat Cardiovascular Cardiovascular: Denies chest pain Respiratory/Chest Respiratory/Chest: Denies cough Gastrointestinal Gastrointestinal: Reports nausea and vomiting; Denies abdominal pain Genitourinary Genitourinary ED: Denies dysuria or hematuria Musculoskeletal Musculoskeletal: Denies arthralgias Integumentary Denies abscess or Abrasions Neurologic Neurologic: Denies headache(s) or paresthesias Psychiatric Psychiatric: Denies anxiety or depression Endocrine Endocrinology: Denies polydipsia or polyphagia EXAM Physical Exam Const Vital Signs: 11/27/22 21:27 Temperature 96.7 F L Temperature Source Temporal Pulse Rate 84 Respiratory Rate 18 Blood Pressure 114/79 Blood Pressure Mean 90 Pulse Ox 100 Oxygen Delivery Method Room Air Positive well nourished General Appearance ED: NAD; Negative for pallor HEENT Reports moist mucous membranes normocephalic and atraumatic Eyes PERRL and EOMs intact bilaterally Neck no lymphadenopathy Resp normal respiratory effort and clear to auscultation bilaterally Cardio regular rate and regular rhythm GI Inspection: Negative for abdominal distention Auscultation: hyperactive bowel sounds Palpation: soft Back/Spine no CVA tenderness Extremity full ROM General Extremety ED: Yes edema General Extremity: edema Neuro CN's II-XII intact bilaterally, moves all extremities, no sensory deficits noted and gait normal Sensorium / Orientation: alert Motor Exam: general weakness Psych mental status grossly normal and thought process normal Skin no wounds General Skin Exam: Negative for jaundice or pallor MDM MDM MDM Narrative Medical decision making narrative: Patient presenting with abdominal pain, nausea, vomiting, diarrhea. She has history of gastric sleeve recently. She has been here several times with s imilar pain. She has been seen by her surgeon in follow-up as well. She states that tonight she drank some apple juice and started vomiting and having diarrhea. She states that previous to this she all she would drink without juice. Patient did not call her surgeon or the on-call surgeon. She states that I become a frequent flyer here. Differential includes but is not limited to GERD, gastric ulcer, viral syndrome, pancreatitis, postoperative pain. Obstruction is possible however based on her exam is unlikely. Will obtain a CBC to look at her white blood cell count and different. CMP to look at renal function, liver function, electrolytes that she has passed and dehydrated. Teddy series to assess for obstruction. CBC shows no evidence of leukocytosis. White blood count is actually normal at 6.2. Hemoglobin macular stable. Platelets are normal. Renal function electrolytes within normal limits. LFTs with mild elevation however this is her baseline. Lipase is normal at 354. Patient initially medicated with Tylenol for her nausea she states that nothing she has is working. She has Reglan, Zofran, Phenergan at home. I did obtain an acute abdominal series, interpretation this is no acute obstruction. The radiology interpretation agrees. On reevaluation patient feeling jittery from the Haldol and I did give her some Benadryl and this helped. She does appear to be dehydrated. I counseled her that she will need to follow-up with her surgeon. I do not believe she needs narcotic pain medication as we have not found any source of pain other than postoperative pain yet. Again I did encourage her to follow-up with her surgeon. Return precautions discussed. Impression: 1. Postoperative abdominal pain 2. Nausea/vomiting Lab Data Attestation: I reviewed the patient's lab results. Labs: Laboratory Results - last 24 hr 11/27/22 11/27/22 23:00 23:00 WBC 6.2 RBC 4.69 Hgb 13.5 Hct 40.7 MCV 86.8 MCH 28.8 MCHC 33.2 RDW Std Deviation 43.6 RDW Coeff of Tony 13.9 Plt Count 196 MPV 11.3 Immature Gran % (Auto) 0.200 Neut % (Auto) 76.7 H Lymph % (Auto) 16.6 L [place] % (Auto) 5.1 Eos % (Auto) 1.1 Baso % (Auto) 0.3 Absolute Neuts (auto) 4.8 Absolute Lymphs (auto) 1.03 Nucleated RBC % 0 Sodium 139 Potassium 3.5 Chloride 103 Carbon Dioxide 30.0 Anion Gap 6 BUN 8 Creatinine 0.80 Estim Creat Clear Calc 84.76 Est GFR (MDRD) Af Amer 105 Est GFR (MDRD) Non-Af 87 BUN/Creatinine Ratio 10.0 Glucose 106 Calcium 9.4 Total Bilirubin 0.60 AST 81 H ALT 146 H Alkaline Phosphatase 47 Total Protein 7.8 Albumin 4.0 Globulin 3.8 Albumin/Globulin Ratio 1.1 Lipase 354 Radiography Diagnostic Testing: Clinical Impression(s) from Imaging Studies Acute Abdomen Series 11/27/22 23:22 IMPRESSION: Nonspecific bowel gas pattern. Electronically Signed: Demetria Boyd MD at 23:54 EST Reading Location ID and State: [address] [place] [address] Tel , Service support , Discharge Plan Triage Chief Complaint: Abd Pain Other Complaint: Nausea/Vomiting ED Provider: Missael Vizcarra Dx/Rx/DC Orders Clinical Impression: Postoperative abdominal pain Instructions: ED Abdominal Pain Unkn Cause Fem Prescriptions: No Action naproxen 500 MG tablet 500 mg PO BID PRN Qty: 20 0RF Primary Care Provider: Mary Michel Referrals: Mary Michel [Primary Care Provider] - Disposition Disposition: Home, Self Care
[2022-11-27 23:17] LABS: Absolute Lymphocyte Count 1.03 X10^3/uL (0.83-4.51); Absolute Neutrophil Count 4.8 X10^3/uL (2.0-7.7); Basophil# 0.02 X10^3/uL; Basophil% 0.3 % (0-1); Eosinophil# 0.07 X10^3/uL; Eosinophils% 1.1 % (0-5); Hematocrit 40.7 % (37-47); Hemoglobin 13.5 g/dL (12.0-15.0); Lymphocyte # 1.03 X10^3/ul (0.83-4.51); Lymphocyte % 16.6 % (19-41); Mean Corp Hgb Conc 33.2 g/dL (32-36); Mean Corpuscular Hgb 28.8 pg (27.0-32.0); Mean Corpuscular Volume 86.8 fL (81-99); Mean Platelet Vol. 11.3 fl (6.2-12.0); Monocyte# 0.32 X10^3/uL; Monocyte% 5.1 % (0-10); NRBC Flagged by Analyzer 0 % (0-5); Neutrophil # 4.77 X10^3/uL (2.7-7.7); Neutrophil % 76.7 % (47-70); Platelet Count 196 K/mm3 (150-450); RBC Distribution Width CV 13.9 % (11.6-14.6); RBC Distribution Width SD 43.6 fl (35.1-43.9); Red Blood Count 4.69 M/mm3 (4.2-5.4); White Blood Count 6.2 K/mm3 (4.4-11.0)
--- NOTE | 2022-11-27 23:22 | RAD_ITS ---
INDICATION: Abdominal pain EXAMINATION/TECHNIQUE: X-RAY - XR Abdomen Series W/ Chest 1 View COMPARISON: Chest x-ray 11/27/2017. FINDINGS: --Chest: The lungs are clear. No pneumothorax. Cardiac silhouette is normal size. --Abdomen: There is a relative paucity of bowel gas throughout the abdomen. No dilated air-filled bowel to suggest bowel obstruction. No free air. No abnormal mass or calcification seen. Surgical clips upper midabdomen and cholecystectomy clips. RAD/Acute Abdomen Inc Chest IMPRESSION: Nonspecific bowel gas pattern. Electronically Signed: Demetria Boyd MD at 23:54 EST ,
[2022-11-27 23:26] LABS: ALB/GLOB Ratio 1.1 RATIO (0.9-2.4); AST(SGOT) 81 U/L (15-37); Alanine Aminotransfer ALT/SGPT 146 U/L (13-56); Alkaline Phosphatase 47 U/L (45-117); Anion Gap 6 (5-15); BUN 8 mg/dL (7-18); Calcium,Total 9.4 mg/dL (8.5-10.1); Chloride 103 mmol/L (98-107); EST Glomerular Filtration Rate 87 mL/min (>60); Est Glom Filt Rate - Afr Amer 105 mL/min (>60); Estimated Creatinine Clearance 84.76 ml/min; Globulin 3.8 g/dL (2.2-4.2); Glucose 106 mg/dL (74-106); Lipase 354 U/L (73-393); Potassium 3.5 mmol/L (3.5-5.1); Protein, Total 7.8 g/dL (6.4-8.2); Sodium Level 139 mmol/L (136-145)
[2022-11-28] MEDS: 0.9% Normal Saline 1,000 ML 1000 ML IV (00:04)
[2022-11-28] MEDS: Haloperidol Lactate 5 MG/ML Vial 2 MG IV (00:05)
[2022-11-28] MEDS: DiphenhydrAMINE 50 MG/ML Syringe 25 MG IV (00:31)
[2022-11-28 01:03] VITALS: BP 111/67; PULSE 81; RESP 16; O2SAT 97
== END 2022-11-28 01:03 | disposition home or self-care (01) ==
PROVIDERS: Emergency Provider Student in an Organized Health Care Education/Training Program; PCP Family Medicine; Visit Provider Student in an Organized Health Care Education/Training Program
DX: R10.9 Unspecified abdominal pain (principal); G89.18 Other acute postprocedural pain; R11.2 Nausea with vomiting, unspecified; Z98.84 Bariatric surgery status
CPT/HCPCS: 74022; 80053; 83690; 85025; 96361; 96372; 96374; 99282; J7030; A4216

== ENCOUNTER 2022-12-17 15:26 | Emergency (ER) | payer OTHER, MEDICAID, SELFPAY ==
[2022-12-17 15:27] VITALS: BP 155/118; PULSE 94; RESP 16; TEMP 36.6; O2SAT 96; BMI 37.6
[2022-12-17 15:54] VITALS: BP 144/92; PULSE 99; RESP 18; TEMP 36.6; O2SAT 96
--- NOTE | 2022-12-17 16:02 | CT_ITS ---
INDICATION: N/V/D , PRIOR GASTRIC SLEEVE 10/17 EXAMINATION: CT Abdomen And Pelvis W/ Contrast Injection TECHNIQUE: Helically acquired images were obtained of the abdomen and pelvis after IV contrast. A radiation dose optimization technique was used for this scan. IV Contrast dosage and agent: IV 100mL [id number] Oral contrast: None. COMPARISON: 11/21/2022.. FINDINGS: Visualized lung bases: Unremarkable Liver: Diffusely hypodense consistent with fatty liver. Gallbladder: Surgically absent. Spleen: Unremarkable Pancreas: Unremarkable Adrenal Glands: Unremarkable Kidneys: Unremarkable Vasculature: Unremarkable GI Tract: Postoperative changes status post gastric sleeve surgery. Lymphadenopathy: None Peritoneum: No ascites. Bladder: Unremarkable Reproductive organs: Unremarkable Bones/Soft tissues: No suspicious osseous or soft tissue lesions . Small fat-containing periumbilical hernia. CT/Abdomen/Pelvis W IV Cont ONLY IMPRESSION: No acute abnormalities in the abdomen or pelvis. Small fat-containing periumbilical hernia. Hepatic steatosis. Postoperative changes status post gastric sleeve surgery. Electronically Signed: Alex Blanca MD at 18:06 EST ,
--- NOTE | 2022-12-17 16:14 | ED.VIS.GI ---
HPI HPI - GI History of Present Illness Chief Complaint: Abd Pain Narrative Narrative: 37-year-old female states that she had gastric sleeve at [facility] approximately 2 months ago. She has been to the ED multiple times for nausea and vomiting. She states that she had scoping performed by her surgeon last week and everything was fine, however, this morning she awoke with nausea and vomiting, and had 2 episodes of diarrhea. She denies any blood in her emesis or stool, no fevers or chills, but she is having right-sided abdominal pain/right flank pain. She denies any dysuria or hematuria. She states that she is wearing one of the antivomiting patches behind her right ear, and she has medication at home. She tried to take her Carafate and omeprazole today, but vomited them both back up. She has vomited 5-6 times today. She presents with the same symptoms that she has had in the past, and feels dehydrated. PFSH PFSH Home Medications naproxen 500 mg tablet 500 mg PO BID PRN #20 tabs 11/27/17 [Rx Last Taken Unknown] promethazine 25 mg rectal suppository 25 mg OH Q6H PRN nausea and vomiting #12 ea 12/17/22 [Rx Last Taken Unknown] Allergy/AdvReac Type Severity Reaction Status Date / Time erythromycin base Allergy Unknown Verified 12/17/22 15:29 milk AdvReac Nausea/Vom/ Verified 12/17/22 15:29 Diarrhea Family History no significant family his Surgical History H/O gastric sleeve Social History household members: none Smoking Status: Never smoker alcohol intake: never substance use type: does not use ROS ROS ED ROS Narrative Constitutional: No fever, no chills. HEENT: No sore throat. No neck pain. No loss of vision. No rhinorrhea. Cardiovascular: No chest pain. No palpitations. No pedal edema. Respiratory: No cough, no shortness of breath. Abdominal: Right flank to upper quadrant abdominal pain. Positive nausea. 5-6 episodes of nonbloody vomiting. 2 episodes of nonbloody diarrhea. Genitourinary: No dysuria. No hematuria. Musculoskeletal: No myalgias. No arthralgias. Neurologic: No headaches. No dizziness. No lightheadedness. Skin: No rash. No change in color. Psychiatric: No depression. No anxiety. EXAM Physical Exam Narrative Exam Narrative: Afebrile. Vital signs noted. HEENT: Normocephalic. Atraumatic. PERRL, EOMI. Neck soft and supple. No point tenderness or step off. Cardiovascular: Regular rate and rhythm. No murmurs, rubs, or gallops appreciated. Respiratory: No tachypnea. Lungs clear to auscultation bilaterally. Gastrointestinal: Abdomen soft, mild tenderness right flank, negative Simmons sign with normoactive bowel sounds. No rebound or guarding. Neurological: Awake. Alert. Nonfocal, nonlateralizing. Skin: No rash. Normal color. No pallor. Musculoskeletal: No pedal edema. Full range of motion extremities. Const Vital Signs: 12/17/22 15:27 12/17/22 15:54 Temperature 97.8 F 97.9 F Temperature Source Temporal Temporal Pulse Rate 94 99 Respiratory Rate 16 18 Blood Pressure 155/118 H 144/92 H Blood Pressure Mean 130 109 Pulse Ox 96 96 Oxygen Delivery Method Room Air Room Air MDM MDM MDM Narrative Medical decision making narrative: I reviewed the patient's prior records. I saw her a few weeks ago, and did not feel that CT imaging needed to be performed. At that time she had the same symptoms and thought maybe she had dumping syndrome. She has been seen previously afterwards, and was mildly dehydrated. She was bolused normal saline 1 L intravenously and administered ondansetron for her nausea and vomiting. I will look for signs of dehydration. I do feel that at this time she needs CT imaging of her abdomen. I reviewed her laboratory work and she has a normal white count of 5.0, hemoglobin normal at 13.7, hematocrit normal at 41.2. Platelet count normal at 187. On her CMP her chloride is elevated at 108, but other electrolytes are unremarkable, glucose of 100 with a normal anion gap of 9. AST is slightly elevated at 38 with ALT of 58, but they are chronically elevated LFTs. Lipase normal at 127. Serum is negative. She required something more for nausea and vomiting so she was administered Reglan. Additionally, she wanted something more for pain so she was administered Bentyl. In review of her CT imaging, I see no acute process. I reviewed the radiology report which confirms no acute process and perhaps some postsurgical changes. At this point in time, I do not feel narcotic pain medication is indicated for her abdominal pain. When I told her that the results of her CT scan and laboratory work was negative she states they always are. She states that she has medication at home. I did offer her Phenergan suppositories which she accepted and this prescription was called in to the pharmacy of her choice. It was reported by the RN that she left without her discharge instructions. Disposition is discharged home in stable condition. Lab Data Attestation: I reviewed the patient's lab results. Labs: Laboratory Results - last 24 hr 12/17/22 12/17/22 12/17/22 16:29 16:29 16:29 WBC 5.0 RBC 4.71 Hgb 13.7 Hct 41.2 MCV 87.5 MCH 29.1 MCHC 33.3 RDW Std Deviation 44.5 H RDW Coeff of Tony 13.9 Plt Count 187 MPV 11.4 Immature Gran % (Auto) 0.200 Neut % (Auto) 72.6 H Lymph % (Auto) 21.8 [place] % (Auto) 4.8 Eos % (Auto) 0.4 Baso % (Auto) 0.2 Absolute Neuts (auto) 3.6 Absolute Lymphs (auto) 1.09 Nucleated RBC % 0 Sodium 142 Potassium 3.8 Chloride 108 H Carbon Dioxide 25.0 Anion Gap 9 BUN 10 Creatinine 0.65 Estim Creat Clear Calc 104.32 Est GFR (MDRD) Af Amer 133 Est GFR (MDRD) Non-Af 110 BUN/Creatinine Ratio 15.4 Glucose 100 Calcium 9.7 Total Bilirubin 0.60 AST 38 H ALT 58 H Alkaline Phosphatase 54 Total Protein 7.8 Albumin 3.9 Globulin 3.9 Albumin/Globulin Ratio 1.0 Lipase 127 Serum , Qual NEGATIVE Radiography Diagnostic Testing: Clinical Impression(s) from Imaging Studies Abdomen/Pelvis CT 12/17/22 16:02 IMPRESSION: No acute abnormalities in the abdomen or pelvis. Small fat-containing periumbilical hernia. Hepatic steatosis. Postoperative changes status post gastric sleeve surgery. Electronically Signed: Alex Blanca MD at 18:06 EST , Discharge Plan Triage Chief Complaint: Abd Pain ED Provider: Oscar Smith Dx/Rx/DC Orders Clinical Impression: Nausea, vomiting, and diarrhea, Abdominal pain Instructions: ED Abdominal Pain Unkn Cause Fem, ED Vomiting and Diarrhea ... Prescriptions: New promethazine 25 mg suppository 25 mg OH Q6H PRN (Reason: nausea and vomiting) Qty: 12 0RF No Action naproxen 500 MG tablet 500 mg PO BID PRN Qty: 20 0RF Primary Care Provider: Mary Michel Referrals: Mary Michel [Primary Care Provider] - Activity Restrictions/Additional Instructions: Follow-up with your gastric bypass surgeon at [facility] as soon as possible. Disposition Disposition: Home, Self Care
[2022-12-17] MEDS: Ondansetron 4 MG/2 ML Vial IV (16:36)
[2022-12-17] MEDS: 0.9% Normal Saline 1,000 ML 1000 ML IV (16:37)
[2022-12-17 16:50] LABS: Absolute Lymphocyte Count 1.09 X10^3/uL (0.83-4.51); Absolute Neutrophil Count 3.6 X10^3/uL (2.0-7.7); Basophil# 0.01 X10^3/uL; Basophil% 0.2 % (0-1); Eosinophil# 0.02 X10^3/uL; Eosinophils% 0.4 % (0-5); Hematocrit 41.2 % (37-47); Hemoglobin 13.7 g/dL (12.0-15.0); Lymphocyte # 1.09 X10^3/ul (0.83-4.51); Lymphocyte % 21.8 % (19-41); Mean Corp Hgb Conc 33.3 g/dL (32-36); Mean Corpuscular Hgb 29.1 pg (27.0-32.0); Mean Corpuscular Volume 87.5 fL (81-99); Mean Platelet Vol. 11.4 fl (6.2-12.0); Monocyte# 0.24 X10^3/uL; Monocyte% 4.8 % (0-10); NRBC Flagged by Analyzer 0 % (0-5); Neutrophil # 3.63 X10^3/uL (2.7-7.7); Neutrophil % 72.6 % (47-70); Platelet Count 187 K/mm3 (150-450); RBC Distribution Width CV 13.9 % (11.6-14.6); RBC Distribution Width SD 44.5 fl (35.1-43.9); Red Blood Count 4.71 M/mm3 (4.2-5.4)
[2022-12-17] MEDS: Dicyclomine 20 MG/2 ML Vial IM (16:50)
[2022-12-17 16:59] LABS: AST(SGOT) 38 U/L (15-37); Alanine Aminotransfer ALT/SGPT 58 U/L (13-56); Albumin, Serum 3.9 g/dL (3.2-5.0); Alkaline Phosphatase 54 U/L (45-117); Anion Gap 9 (5-15); BUN 10 mg/dL (7-18); BUN/Creat Ratio 15.4 RATIO (10-20); Calcium,Total 9.7 mg/dL (8.5-10.1); Chloride 108 mmol/L (98-107); Creatinine, Serum 0.65 mg/dL (0.55-1.02); EST Glomerular Filtration Rate 110 mL/min (>60); Est Glom Filt Rate - Afr Amer 133 mL/min (>60); Estimated Creatinine Clearance 104.32 ml/min; Globulin 3.9 g/dL (2.2-4.2); Glucose 100 mg/dL (74-106); Lipase 127 U/L (73-393); Potassium 3.8 mmol/L (3.5-5.1); Protein, Total 7.8 g/dL (6.4-8.2); Sodium Level 142 mmol/L (136-145)
[2022-12-17 17:04] LABS: Internal QC Validated? YES +Cl - CLEAR BKGD; Pregnancy, Serum, hCG Quali. NEGATIVE Negative
[2022-12-17] MEDS: Metoclopramide 10 MG/2 ML Vial 5 MG IV (17:46)
--- NOTE | 2022-12-17 18:38 | NURSING ---
PATIENT WALKED OUT WITHOUT DISCHARGE INSTRUCTIONS. PATIENT STATED, I DON'T NEED DISCHARGE PAPERS, I'M JUST WALKING OUT.
== END 2022-12-17 18:42 | disposition home or self-care (01) ==
PROVIDERS: Emergency Provider Emergency Medicine; PCP Family Medicine; Visit Provider Emergency Medicine
DX: R11.2 Nausea with vomiting, unspecified (principal); R19.7 Diarrhea, unspecified; R10.9 Unspecified abdominal pain; Z98.84 Bariatric surgery status
CPT/HCPCS: 74177; 80053; 83690; 84703; 85025; 96361; 96372; 96374; 96375; 99283; J7030; Q9967; A4216; J2405

== ENCOUNTER 2022-12-19 02:34 | Emergency (ER) | payer OTHER, MEDICAID, SELFPAY ==
[2022-12-19 02:35] VITALS: BP 168/101; PULSE 86; RESP 14; TEMP 35.5; O2SAT 97; BMI 36.8
[2022-12-19] MEDS: Morphine 4 MG/ML Syringe IV ×2 (03:45→04:43)
[2022-12-19] MEDS: proCHLORPERazine 10 MG/2 ML Vial IV (03:45)
[2022-12-19 03:46] LABS: Absolute Lymphocyte Count 1.83 X10^3/uL (0.83-4.51); Absolute Neutrophil Count 5.8 X10^3/uL (2.0-7.7); Basophil# 0.02 X10^3/uL; Basophil% 0.2 % (0-1); Eosinophil# 0.02 X10^3/uL; Eosinophils% 0.2 % (0-5); Hematocrit 42.3 % (37-47); Hemoglobin 13.8 g/dL (12.0-15.0); Lymphocyte # 1.83 X10^3/ul (0.83-4.51); Lymphocyte % 22.1 % (19-41); Mean Corp Hgb Conc 32.6 g/dL (32-36); Mean Corpuscular Hgb 29.4 pg (27.0-32.0); Mean Platelet Vol. 11.2 fl (6.2-12.0); Monocyte# 0.53 X10^3/uL; Monocyte% 6.4 % (0-10); NRBC Flagged by Analyzer 0 % (0-5); Neutrophil # 5.84 X10^3/uL (2.7-7.7); Neutrophil % 70.7 % (47-70); Platelet Count 270 K/mm3 (150-450); RBC Distribution Width CV 14.1 % (11.6-14.6); RBC Distribution Width SD 46.3 fl (35.1-43.9); White Blood Count 8.3 K/mm3 (4.4-11.0)
[2022-12-19] MEDS: 0.9% Normal Saline 1,000 ML 999 ML IV (03:46)
[2022-12-19 04:03] LABS: AST(SGOT) 26 U/L (15-37); Alanine Aminotransfer ALT/SGPT 51 U/L (13-56); Albumin, Serum 4.1 g/dL (3.2-5.0); Alkaline Phosphatase 52 U/L (45-117); Anion Gap 9 (5-15); BUN 10 mg/dL (7-18); BUN/Creat Ratio 14.9 RATIO (10-20); Bilirubin, Direct 0.24 mg/dL (0.00-0.30); Calcium,Total 9.7 mg/dL (8.5-10.1); Chloride 105 mmol/L (98-107); Creatinine, Serum 0.67 mg/dL (0.55-1.02); EST Glomerular Filtration Rate 106 mL/min (>60); Est Glom Filt Rate - Afr Amer 128 mL/min (>60); Glucose 109 mg/dL (74-106); Lipase 114 U/L (73-393); Potassium 3.7 mmol/L (3.5-5.1); Protein, Total 8.1 g/dL (6.4-8.2); Sodium Level 139 mmol/L (136-145)
[2022-12-19 04:14] LABS: Lactic Acid 1.7 mmol/L (0.4-1.9)
--- NOTE | 2022-12-19 04:38 | EX.ED.DYSGE1 ---
HPI History of Present Illness Chief Complaint: Abd Pain Narrative Narrative: Patient is a 37-year-old female with past medical history of morbid obesity who underwent a lap band gastric bypass procedure 2 months ago. She states since that time she has been having recurrent abdominal pain. She states that she was seen in the ER on Friday secondary to this pain which began on Friday and had bouts of nausea and vomiting associated with it. She states that the work-up today did not show anything obvious and she was discharged home. She states pain has been persistent and secondary to this she returns for repeat evaluation. She denies any dysuria and she denies any trauma prior to the pain beginning. She does state that she was also scoped after her persistent pain because of concern for ulcer and this reportedly showed no acute findings. PFSH PFSH Home Medications naproxen 500 mg tablet 500 mg PO BID PRN #20 tabs 11/27/17 [Rx Last Taken Unknown] promethazine 25 mg rectal suppository 25 mg MS Q6H PRN nausea and vomiting #12 ea 12/17/22 [Rx Last Taken Unknown] oxycodone-acetaminophen 5 mg-325 mg tablet (Percocet) 1 tab PO Q6H PRN pain 3 days #12 tabs 12/19/22 [Rx Last Taken Unknown] Allergy/AdvReac Type Severity Reaction Status Date / Time erythromycin base Allergy Unknown Verified 12/17/22 15:29 milk AdvReac Nausea/Vom/ Verified 12/17/22 15:29 Diarrhea Family History no significant family his Surgical History H/O gastric sleeve Social History household members: none Smoking Status: Never smoker alcohol intake: never substance use type: does not use ROS ROS ED Constitutional Constitutional ED: Denies chills or fever(s) ENT ENT ED: Reports sore throat Cardiovascular Cardiovascular: Denies chest pain Respiratory/Chest Respiratory/Chest: Denies cough or dyspnea Gastrointestinal Gastrointestinal: Reports abdominal pain, nausea and vomiting; Denies constipation or diarrhea Genitourinary Genitourinary ED: Denies dysuria or hematuria Musculoskeletal Musculoskeletal: Denies back pain or myalgias Integumentary Denies rash Neurologic Neurologic: Denies headache(s) Hematologic/Lymphatic Hematologic/Lymphatic: Denies easy bleeding or easy bruising EXAM Physical Exam Const Vital Signs: 12/19/22 02:35 Temperature 96 F L Temperature Source Temporal Pulse Rate 86 Respiratory Rate 14 Blood Pressure 168/101 H Blood Pressure Mean 123 Pulse Ox 97 Oxygen Delivery Method Room Air Positive well nourished, well developed and obese General Appearance ED: well developed Nutritional Appearance: obese HEENT Reports moist mucous membranes HEENT Narrative: No signs of infection in the posterior pharynx Eyes PERRL and EOMs intact bilaterally General Eye ED: Negative for scleral icterus Neck supple Resp normal respiratory effort and clear to auscultation bilaterally Cardio regular rate and regular rhythm Rate: other Other Details: Radial pulses are plus 2 out of 4 bilaterally are equal and symmetric GI non-distended GI Narrative: Abdomen is soft and nondistended with normoactive bowel sounds. There is pain on palpation in the midepigastric region without voluntary guarding or rigidity. No pulsatile mass or fluid wave. No incarcerated hernia noted Auscultation: normoactive bowel sounds Palpation: soft Back/Spine no CVA tenderness Extremity normal to inspection Neuro oriented x3 and CN's II-XII intact bilaterally Sensorium / Orientation: alert Psych mental status grossly normal Skin no rashes or lesions noted General Skin Exam: Negative for jaundice MDM MDM MDM Narrative Medical decision making narrative: Patient presented to the ER mildly hypertensive but otherwise with stable vitals. She was seen just 2 days ago and had a complete work-up included a CT scan so I felt no need to repeat one at this time. Patient blood work was repeated and this revealed no signs of leukocytosis or left shift no signs of acute kidney injury or severe electrolyte derangement or elevation to her lipase to suggest acute pancreatitis. Patient was given IV hydration and morphine and on reevaluation had resolution of her pain. We discussed possible transfer to [facility] where she had her gastric bypass performed. However she states that she has been up there before and sent home after evaluated by the neurosurgical nurse practitioner. I informed her that with her negative CAT scan and 2 days of negative blood work they most likely would have her evaluated in the ER and if they found no reason for admission send her home. Patient states that she would not have a way to get home and does not want to be stuck in [place]. Therefore at this time as her second work-up is negative and her pain has resolved she does feel comfortable returning home and following up on an outpatient basis. Lab Data Attestation: I reviewed the patient's lab results. Labs: Laboratory Results - last 24 hr 12/19/22 12/19/22 12/19/22 03:40 03:40 03:40 WBC 8.3 RBC 4.70 Hgb 13.8 Hct 42.3 MCV 90.0 MCH 29.4 MCHC 32.6 RDW Std Deviation 46.3 H RDW Coeff of Tony 14.1 Plt Count 270 MPV 11.2 Immature Gran % (Auto) 0.400 Neut % (Auto) 70.7 H Lymph % (Auto) 22.1 [place] % (Auto) 6.4 Eos % (Auto) 0.2 Baso % (Auto) 0.2 Absolute Neuts (auto) 5.8 Absolute Lymphs (auto) 1.83 Nucleated RBC % 0 Sodium 139 Potassium 3.7 Chloride 105 Carbon Dioxide 25.0 Anion Gap 9 BUN 10 Creatinine 0.67 Estim Creat Clear Calc 101.20 Est GFR (MDRD) Af Amer 128 Est GFR (MDRD) Non-Af 106 BUN/Creatinine Ratio 14.9 Glucose 109 H Lactic Acid 1.7 Calcium 9.7 Total Bilirubin 0.70 Direct Bilirubin 0.24 AST 26 ALT 51 Alkaline Phosphatase 52 Total Protein 8.1 Albumin 4.1 Globulin 4.0 Lipase 114 Discharge Plan Triage Chief Complaint: Abd Pain ED Provider: David Sneed Dx/Rx/DC Orders Clinical Impression: Nonspecific abdominal pain, Nausea & vomiting Instructions: Abdominal Pain, ED Vomiting (Adult) Prescriptions: New oxycodone-acetaminophen [Percocet] 5-325 mg tablet 1 tab PO Q6H PRN (Reason: pain) 3 Days Qty: 12 0RF No Action naproxen 500 MG tablet 500 mg PO BID PRN Qty: 20 0RF promethazine 25 mg suppository 25 mg MS Q6H PRN (Reason: nausea and vomiting) Qty: 12 0RF Primary Care Provider: Mary Michel Referrals: Mary Michel [Primary Care Provider] - Activity Restrictions/Additional Instructions: Please follow-up with your surgeon for repeat evaluation and return to the ER should you have any further concerns Disposition Disposition: Home, Self Care Discharge Date/Time: 12/19/22 04:45
[2022-12-19 04:44] VITALS: O2SAT 99
== END 2022-12-19 04:45 | disposition home or self-care (01) ==
LOC: ED 02:52
PROVIDERS: Emergency Provider Emergency Medicine; PCP Family Medicine; Visit Provider Emergency Medicine
DX: R10.9 Unspecified abdominal pain (principal); R11.2 Nausea with vomiting, unspecified; E66.9 Obesity, unspecified; Z98.84 Bariatric surgery status
CPT/HCPCS: 80048; 80076; 83605; 83690; 85025; 96361; 96374; 96375; 96376; 99282; J7030; A4216

== ENCOUNTER 2022-12-22 15:27 | Emergency (ER) | payer OTHER, MEDICAID, SELFPAY ==
[2022-12-22 15:28] VITALS: BP 142/110; PULSE 86; RESP 14; TEMP 36.3; O2SAT 97; BMI 35.9
[2022-12-22 15:34] VITALS: BP 155/85; PULSE 77; RESP 18; O2SAT 96
--- NOTE | 2022-12-22 15:53 | ED.VIS.GI ---
HPI HPI - GI History of Present Illness Chief Complaint: Abd Pain Informant: patient Narrative Narrative: Patient presenting reporting persistent epigastric to right upper quadrant abdominal pain. History of cholecystectomy years ago. She is status post gastric sleeve by Dr. Willy Blanca for 2 months ago. Symptoms started since then. She followed up with upper endoscopy November 29. She states there is no acute findings. She was told just to drink fluids however she states pain would aggravate when she just takes a sip of water. She has tried discussing through [employer] however gets responses from nurse practitioners to continue to drink fluids. She is on Carafate. She has Zofran and Phenergan including suppositories along with scopolamine patches. Reports currently not vomiting just has upper abdominal pain. Symptoms improved with hot baths. She denies marijuana use or alcohol use. She took her last Percocet this morning. She states she is doing fine since prior to the procedure. Prior similar symptoms: Yes PFSH PFSH Home Medications promethazine 25 mg rectal suppository 25 mg OR Q6H PRN nausea and vomiting #12 ea 12/17/22 [Rx Last Taken 12/22/22] oxycodone-acetaminophen 5 mg-325 mg tablet (Percocet) 1 tab PO Q6H PRN pain 3 days #12 tabs 12/19/22 [Rx Last Taken 12/22/22] MAGIC MOUTH WASH (BMX) 180 mL suspension 5 ml PO Q6H PRN PRN abdominal pain #180 mL 12/22/22 [Rx Last Taken Unknown] omeprazole 20 mg capsule,delayed release 20 mg PO BID 12/22/22 [History Last Taken 12/22/22] sucralfate 1 gram tablet (Carafate) 1 g PO 4X/DAY 12/22/22 [History Last Taken 12/22/22] Allergy/AdvReac Type Severity Reaction Status Date / Time erythromycin base Allergy Unknown Verified 12/22/22 15:34 milk AdvReac Nausea/Vom/ Verified 12/22/22 15:34 Diarrhea Surgical History H/O gastric sleeve Social History household members: none Smoking Status: Never smoker alcohol intake: never substance use type: does not use ROS ROS ED Constitutional Constitutional ED: Denies chills, fever(s) or sweats Eyes Eyes: Denies change in vision ENT ENT ED: Denies dysphagia or sore throat Cardiovascular Cardiovascular: Denies chest pain, leg edema, palpitations or racing heartbeat Respiratory/Chest Respiratory/Chest: Denies cough, dyspnea or dyspnea on exertion Gastrointestinal Gastrointestinal: Reports abdominal pain; Denies diarrhea, nausea or vomiting Genitourinary Genitourinary ED: Denies dysuria, hematuria or urinary frequency Musculoskeletal Musculoskeletal: Denies back pain, extremity pain or neck pain Integumentary Denies rash or wounds Neurologic Neurologic: Denies headache(s), paresthesias or weakness EXAM Physical Exam Const Vital Signs: 12/22/22 15:28 12/22/22 15:34 12/22/22 17:49 Temperature 97.4 F L Temperature Source Temporal Pulse Rate 86 77 64 Respiratory Rate 14 18 18 Blood Pressure 142/110 H 155/85 H 119/84 H Blood Pressure Mean 120 108 95 Pulse Ox 97 96 94 Oxygen Delivery Method Room Air Room Air Room Air 12/22/22 17:56 Temperature Temperature Source Pulse Rate 69 Respiratory Rate 18 Blood Pressure 119/84 H Blood Pressure Mean Pulse Ox 97 Oxygen Delivery Method Positive well nourished and well developed General Appearance ED: well developed and NAD HEENT Reports moist mucous membranes normocephalic and atraumatic Eyes PERRL, EOMs intact bilaterally and conjunctivae normal General Eye ED: Yes normal appearance of both eyes Neck no lymphadenopathy and supple General: Negative for tenderness Chest Wall Chest: Negative for tenderness Resp normal respiratory effort and normal air movement Effort and Inspection: symmetric chest movement; Negative for respiratory distress Cardio regular rate, regular rhythm and no murmurs Peripheral Pulses: pulses 2+ throughout GI normal to inspection, nondistended, normoactive bowel sounds GI Narrative: Mild upper abdominal pain there is no guarding or rebound. Normal bowel sounds. Palpation: Negative for guarding or rebound tenderness present Back/Spine no CVA tenderness and no thoracic nor lumbar tenderness Extremity normal to inspection General Extremety ED: Negative for edema or tenderness General Extremity: Negative for edema Neuro oriented x3 and no sensory deficits noted Sensorium / Orientation: awake and alert Skin no rashes or lesions noted and no wounds MDM MDM MDM Narrative Medical decision making narrative: Interventions / MDM: Differential diagnosis: Gastritis, pancreatitis, nonspecific abdominal pain Diagnosis considered but do not suspect: Abdominal perforation however clinically nonsurgical. My EKG interpretation: N/A Imaging independently reviewed and interpreted by myself: N/A External documents reviewed: Recent ER work-ups and image studies last time [address] scan showing no acute process of the abdomen pelvis. Test considered but not ordered:N/A ED course: Patient presented with nonsurgical abdomen. She reports decreased oral intake therefore IV established given IV fluids. She treated with a GI cocktail reported transient relief of symptoms. Abdominal labs White count 6.7 creatinine 0.66 normal lipase and LFTs's. hCG negative. Potassium 3.1. Talk screen noted opiates however she was prescribed Percocets 3 days ago. She seen. Re-evaluation: stable, abdomen remains benign. She is able to tolerate oral potassium. I do not feel reimaging her abdomen is necessary. I did reach out to her surgeon Dr. Willy Blanca who knows her well. Confirms endoscopy was negative. Discussed patient's history of multiple visits to the ED. She is currently on Carafate and omeprazole. Reported she did have some improvement with a GI cocktail, agrees with using this as needed, she will call the office tomorrow to be seen earlier. This was relayed to the patient understands and agrees with plan. Disposition discussed with patient/family/significant other: Patient Case discussed with consulting clinician: Surgery, Dr. Willy Blanca Lab Data Attestation: I reviewed the patient's lab results. Labs: Laboratory Results - last 24 hr 12/22/22 12/22/22 12/22/22 16:00 16:00 16:00 WBC 6.7 RBC 4.59 Hgb 13.4 Hct 40.1 MCV 87.4 MCH 29.2 MCHC 33.4 RDW Std Deviation 43.4 RDW Coeff of Tony 13.6 Plt Count 218 MPV 11.4 Immature Gran % (Auto) 0.300 Neut % (Auto) 67.1 Lymph % (Auto) 23.9 [place] % (Auto) 7.2 Eos % (Auto) 1.2 Baso % (Auto) 0.3 Absolute Neuts (auto) 4.5 Absolute Lymphs (auto) 1.59 Nucleated RBC % 0 Sodium 139 Potassium 3.1 L Chloride 101 Carbon Dioxide 25.0 Anion Gap 13 BUN 14 Creatinine 0.66 Estim Creat Clear Calc 102.74 Est GFR (MDRD) Af Amer 132 Est GFR (MDRD) Non-Af 109 BUN/Creatinine Ratio 21.3 H Glucose 97 Calcium 9.7 Total Bilirubin 0.60 AST 13 L ALT 33 Alkaline Phosphatase 51 Total Protein 7.8 Albumin 4.0 Globulin 3.8 Albumin/Globulin Ratio 1.1 Lipase 203 Serum , Qual NEGATIVE Urine Opiates Screen Urine Methadone Screen Ur Barbiturates Screen Ur Phencyclidine Scrn Ur Amphetamines Screen MDMA (Ecstasy) Screen U Benzodiazepines Scrn Urine Cocaine Screen U Cannabinoids Screen Ur Drug Screen Comment 12/22/22 16:45 WBC RBC Hgb Hct MCV MCH MCHC RDW Std Deviation RDW Coeff of Tony Plt Count MPV Immature Gran % (Auto) Neut % (Auto) Lymph % (Auto) [place] % (Auto) Eos % (Auto) Baso % (Auto) Absolute Neuts (auto) Absolute Lymphs (auto) Nucleated RBC % Sodium Potassium Chloride Carbon Dioxide Anion Gap BUN Creatinine Estim Creat Clear Calc Est GFR (MDRD) Af Amer Est GFR (MDRD) Non-Af BUN/Creatinine Ratio Glucose Calcium Total Bilirubin AST ALT Alkaline Phosphatase Total Protein Albumin Globulin Albumin/Globulin Ratio Lipase Serum , Qual Urine Opiates Screen POSITIVE H Urine Methadone Screen NEGATIVE Ur Barbiturates Screen NEGATIVE Ur Phencyclidine Scrn NEGATIVE Ur Amphetamines Screen NEGATIVE MDMA (Ecstasy) Screen NEGATIVE U Benzodiazepines Scrn NEGATIVE Urine Cocaine Screen NEGATIVE U Cannabinoids Screen NEGATIVE Ur Drug Screen Comment Discharge Plan Triage Chief Complaint: Abd Pain ED Provider: Tico Cabrera Dx/Rx/DC Orders Clinical Impression: Abdominal pain, Gastritis, Hypokalemia Instructions: Abdominal Pain, ED Gastritis (Adult) Prescriptions: New MAGIC MOUTH WASH (BMX) 180 mL suspension 5 ml PO Q6H PRN PRN (Reason: abdominal pain) Qty: 180 0RF Rx Instructions: diphenhydramine 12.5 mg/5 mL oral liquid 60 mL; aluminum-mag hydroxide-simethicone 400 mg-400 mg-40 mg/5 mL oral susp 60 mL; Lidocaine Viscous 2 % mucosal solution 60 mL; Per 180 mL No Action promethazine 25 mg suppository 25 mg OR Q6H PRN (Reason: nausea and vomiting) Qty: 12 0RF oxycodone-acetaminophen [Percocet] 5-325 mg tablet 1 tab PO Q6H PRN (Reason: pain) 3 Days Qty: 12 0RF sucralfate [Carafate] 1 gram Tablet 1 g PO 4X/DAY omeprazole 20 mg Capsule,Delayed Release(Dr/Ec) 20 mg PO BID Primary Care Provider: Mary Michel Referrals: Mary Michel [Primary Care Provider] - 1 Week Activity Restrictions/Additional Instructions: Discussed with Dr. Willy Blanca through the ED. Call office tomorrow to be seen in the office. Continue your omeprazole and Carafate. Use Magic mouthwash as prescribed as needed. Disposition Disposition: Home, Self Care Discharge Date/Time: 12/22/22 18:48
[2022-12-22] MEDS: 0.9% Normal Saline 1,000 ML 1000 ML IV (16:06)
[2022-12-22 16:07] LABS: Absolute Lymphocyte Count 1.59 X10^3/uL (0.83-4.51); Absolute Neutrophil Count 4.5 X10^3/uL (2.0-7.7); Basophil# 0.02 X10^3/uL; Basophil% 0.3 % (0-1); Eosinophil# 0.08 X10^3/uL; Eosinophils% 1.2 % (0-5); Hematocrit 40.1 % (37-47); Hemoglobin 13.4 g/dL (12.0-15.0); Lymphocyte # 1.59 X10^3/ul (0.83-4.51); Lymphocyte % 23.9 % (19-41); Mean Corp Hgb Conc 33.4 g/dL (32-36); Mean Corpuscular Hgb 29.2 pg (27.0-32.0); Mean Corpuscular Volume 87.4 fL (81-99); Mean Platelet Vol. 11.4 fl (6.2-12.0); Monocyte# 0.48 X10^3/uL; Monocyte% 7.2 % (0-10); NRBC Flagged by Analyzer 0 % (0-5); Neutrophil # 4.46 X10^3/uL (2.7-7.7); Neutrophil % 67.1 % (47-70); Platelet Count 218 K/mm3 (150-450); RBC Distribution Width CV 13.6 % (11.6-14.6); RBC Distribution Width SD 43.4 fl (35.1-43.9); Red Blood Count 4.59 M/mm3 (4.2-5.4); White Blood Count 6.7 K/mm3 (4.4-11.0)
[2022-12-22] MEDS: Mag Hydrox/Al Hydrox/Simeth 30 ML UDC PO (16:07)
[2022-12-22 16:23] LABS: Internal QC Validated? YES +Cl - CLEAR BKGD; Pregnancy, Serum, hCG Quali. NEGATIVE Negative
[2022-12-22 16:25] LABS: ALB/GLOB Ratio 1.1 RATIO (0.9-2.4); AST(SGOT) 13 U/L (15-37); Alanine Aminotransfer ALT/SGPT 33 U/L (13-56); Alkaline Phosphatase 51 U/L (45-117); Anion Gap 13 (5-15); BUN 14 mg/dL (7-18); BUN/Creat Ratio 21.3 RATIO (10-20); Calcium,Total 9.7 mg/dL (8.5-10.1); Chloride 101 mmol/L (98-107); Creatinine, Serum 0.66 mg/dL (0.55-1.02); EST Glomerular Filtration Rate 109 mL/min (>60); Est Glom Filt Rate - Afr Amer 132 mL/min (>60); Estimated Creatinine Clearance 102.74 ml/min; Globulin 3.8 g/dL (2.2-4.2); Glucose 97 mg/dL (74-106); Lipase 203 U/L (73-393); Potassium 3.1 mmol/L (3.5-5.1); Protein, Total 7.8 g/dL (6.4-8.2); Sodium Level 139 mmol/L (136-145)
--- NOTE | 2022-12-22 17:19 | NURSING ---
PAGED DR MALACHI MCKEON, SURGEON, FOR DR HOYT
[2022-12-22] MEDS: Potassium Chloride Oral Tablet 20 MEQ 40 MEQ PO (17:22)
[2022-12-22 17:27] LABS: Amphetamine Urine VISTA NEGATIVE (<1000 ng/mL); Barbiturate Urine VISTA NEGATIVE (< 200 ng/mL); Benzodiazepine Urine VISTA NEGATIVE (< 200 ng/mL); Cocaine Urine VISTA NEGATIVE (< 300 ng/mL); Ecstacy Urine VISTA NEGATIVE (< 500 ng/mL); Methadone Urine VISTA NEGATIVE (< 300 ng/mL); PCP Urine VISTA NEGATIVE (< 25 ng/mL); THC Urine VISTA NEGATIVE (< 50 ng/mL); Vista UDS pH Range 6
[2022-12-22 17:49] VITALS: BP 119/84; PULSE 64; RESP 18; O2SAT 94
[2022-12-22 17:56] VITALS: BP 119/84; PULSE 69; RESP 18; O2SAT 97
== END 2022-12-22 18:48 | disposition home or self-care (01) ==
PROVIDERS: Emergency Provider Emergency Medicine; PCP Family Medicine; Visit Provider Emergency Medicine
DX: R10.13 Epigastric pain (principal); K29.70 Gastritis, unspecified, without bleeding; E87.6 Hypokalemia; Z79.899 Other long term (current) drug therapy
CPT/HCPCS: 80053; 80307; 83690; 84703; 85025; 96360; 96361; 99284; J7030; A4216